=== PATIENT | female | born 1985 | race Caucasian/White ===

== ENCOUNTER 2022-01-22 19:55 | Emergency (ER) | payer MEDICAID, SELFPAY ==
--- NOTE | ~2022-01-22 | XR_ITS ---
EXAMINATION: XR CHEST CLINICAL INFORMATION: Cough. COMPARISON: 11/03/2017 chest radiographs. TECHNIQUE: 2 views of the chest were obtained. FINDINGS: No significant abnormality is noted involving the heart, lungs, mediastinum, bony thorax or soft tissues. XR/XR chest 2V IMPRESSION: No acute cardiopulmonary process.
[2022-01-22 22:04] VITALS: BP 153/90; PULSE 88; RESP 18; TEMP 36.8; O2SAT 99; BMI 29.5
[2022-01-22 22:28] LABS: MANUAL DIFF FLAG NO
[2022-01-22 22:35] LABS: Basophils Percent Auto 0.2 % (0-2); Eosinophils Percent Auto 0.2 % (0-4); Hematocrit 40.6 % (37.0-47.0); Imm Gran Abs Auto 0.01 X10*3/uL (0.00-0.03); Imm Gran Pct Auto 0.2 % (0.0-0.4); Lymphocytes Absolute Auto 1.4 X10*3/uL (1.2-4.9); Lymphocytes Percent Auto 25.9 % (20-40); Mean Corpuscular HGB Conc 34.5 g/dl (31.0-35.0); Mean Corpuscular Hemoglobin 30.7 pg (27.0-33.0); Mean Platelet Volume 10.5 fL (9.4-12.3); Monocytes Absolute Auto 0.3 X10*3/uL (0.1-1.2); Monocytes Percent Auto 6.1 % (2-11); Neutrophils Absolute Auto 3.6 x10*3/uL (2.0-8.3); Neutrophils Percent Auto 67.4 % (45-73); Platelet Count 205 X10*3/uL (160-400); Red Blood Count 4.56 X10*6/uL (4.20-5.50); Red Cell Distribution Width 12.1 % (11.0-16.0); White Blood Count 5.3 X10*3/uL (4.8-10.8)
[2022-01-22 22:44] LABS: COVID-19 Test Positive (Negative)
[2022-01-23 00:06] LABS: Alanine Aminotransferase 24 U/L (0-31); Albumin Level 4.5 g/dL (3.5-5.0); Alkaline Phosphatase 35 U/L (39-117); Anion Gap 16 (12-20); Aspartate Amino Transferase 19 U/L (5-31); Bilirubin Total 1.1 mg/dL (0.0-1.0); Blood Urea Nitrogen 13 mg/dL (9-16); Calcium 9.4 mg/dL (8.4-10.2); Carbon Dioxide 23 mmol/L (22-29); Chloride 102 mmol/L (96-108); Creatinine Clr Calc Pharmacy 101.3; Estimated Glomerular Filt Rate > 60; Glucose Random 80 mg/dL (60-115); Potassium 3.8 mmol/L (3.3-5.1); Sodium 137 mmol/L (135-145)
[2022-01-23] MEDS: 0.9 % Sodium Chloride 1,000 ML 999 ML IV ×3 (08:44→11:22)
[2022-01-23] MEDS: ondansetron HCL 4 MG/2 ML VIAL IVPUSH (08:46)
[2022-01-23 08:49] VITALS: BP 97/66; PULSE 140; RESP 16; TEMP 36.9; O2SAT 98
--- NOTE | 2022-01-23 08:53 | ECG_ITS ---
Test Reason : TACHYCARDIA Blood Pressure : / mmHG Vent. Rate : 073 BPM Atrial Rate : 073 BPM P-R Int : 138 ms QRS Dur : 074 ms QT Int : 430 ms P-R-T Axes : 070 053 017 degrees QTc Int : 473 ms Normal sinus rhythm Normal ECG No previous ECGs available Referred By: Ellen Lau Electronically Signed By:YAZMIN MARQUEZ
[2022-01-23] MEDS: Acetaminophen 325 MG TABLET 650 MG PO (09:50)
--- NOTE | 2022-01-23 11:29 | ED_ITS ---
HPI - General Adult General Chief complaint: General Medical Stated complaint: COVID + 10 days ago, can't eat for about 1 week Time Seen by Provider: 01/23/22 03:14 Source: patient Mode of arrival: ambulatory History of Present Illness HPI narrative: 36-year-old female COVID-19 positive on 01/15/22 presenting to the ED complaining of anorexia, nausea, vomiting, inability to tolerate p.o., dry cough, and exertional dyspnea. Reports generalized fatigue/weakness. Denies fever, chills, chest pain, abdominal pain, dysuria/hematuria Onset (ago): day(s) Related Data Previous Rx's Medication Instructions Recorded ondansetron 4 mg disintegrating 4 mg PO Q8H PRN #10 tab 01/23/22 tablet Allergies Allergy/AdvReac Type Severity Reaction Status Date / Time No Known Allergies Allergy Verified 01/22/22 22:02 [No Known Allergies*] Review of Systems Review of Systems: Constitutional: No Fever, No Chills, + Fatigue, + Malaise ENT/Mouth: No Ear Pain, No Nasal Congestion, No Sinus Pain, No Hoarseness, No sore throat, No Rhinorrhea, No Swallowing Difficulty Eyes: No Eye Pain, No Swelling, No Redness Cardiovascular: No Chest Pain, No SOB, + Dyspnea on Exertion, No Orthopnea, No Edema, No Palpitations Respiratory: + Cough, No Sputum, No Wheezing, No Smoke Exposure, No Dyspnea Gastrointestinal: + Nausea, + Vomiting, No Diarrhea, No Constipation, No Abdominal pain Genitourinary: No Dysuria, No Urinary Frequency, No Hematuria, No Flank Pain, No Hesitancy Musculoskeletal: No joint pain, No Myalgias, No Joint Swelling Skin: No Skin Lesions, No rash Neuro: + Weakness, + lightheadedness, No Headache Yes all other systems are reviewed and are negative [facility] Past Medical History Attestation statement: The following information was validated with the patient. Social History Social History Advance Directives: No Advance Directives Information Provided: No Physical Exam ED Vital Signs: Vital Signs - 24 hr 01/22/22 22:04 01/23/22 08:49 01/23/22 11:36 Temperature 98.2 F 98.4 F 98.3 F Pulse Rate 88 140 H 74 Respiratory Rate 18 16 16 Blood Pressure 153/90 H 97/66 91/60 Pulse Oximetry 99 98 100 01/23/22 13:34 Temperature 97.6 F Pulse Rate 74 Respiratory Rate 16 Blood Pressure 101/70 Pulse Oximetry 99 BMI result Body Mass Index 29.5 Const General: cooperative, healthy appearing, no acute distress and alert Orientation/consciousness: patient oriented x3 Limitations: no limitations HENMT Head: Yes normal to inspection and Yes atraumatic Ears: hearing grossly normal bilaterally General nose exam: Normal external nose present Face and sinus: Yes normal facial exam Mouth: mucous membranes dry Throat: Yes posterior oropharynx normal, Yes tonsils normal, Yes uvula midline and No peritonsillar mass Eyes General: appearance normal, both eyes and all related structures EOM: EOMs intact bilaterally Neck Neck: Yes normal visual inspection and Yes no meningeal signs Resp Effort & Inspection: normal respiratory effort and no respiratory distress Auscultation: clear to auscultation bilaterally, no rales, no rhonchi and no wheezes Cardio Rate: regular rate and tachycardic Heart sounds: S1 normal heart sound present and S2 normal heart sound present GI Inspection: Yes normal to inspection Palpation (GI): Soft to palpation, nontender, no guarding and not rigid Skin Rashes: no rashes Wounds: no wounds Neuro General: patient oriented x3, tone normal and no meningeal signs Gait exam (Neuro): Normal gait present Extrem General: Yes normal to inspection, Yes no pedal edema and Yes no calf tenderness Course Course Course Narrative: -1134-- no leukocytosis. Labs otherwise unremarkable. -COVID-19 positive XR chest 2V IMPRESSION: No acute cardiopulmonary process. -UA not infected, >=80 ketones >> vital signs improved after IVF/tachycardia resolved. BP soft suspected from dehydration. -1315--on re-evaluation patient tolerating p.o., results discussed a survey project manager including worrisome signs and symptoms and strict return precautions and need close follow-up with PCP. She verbalized understanding and feel safe for discharge home at this time Medical Decision Making MDM Narrative Medical decision making narrative: 36-year-old female COVID-19 positive on 01/15/22 presenting to the ED complaining of anorexia, nausea, vomiting, inability to tolerate p.o., dry cough, and exertional dyspnea. On exam tachycardic likely from dehydration, NAD/nontoxic appearing, abdomen soft nontender, lungs CTA, no pedal edema/calf tenderness. Concern for viral illness. Lower concern for ACS/PE. Rule out pne umonia and metabolic abnormalities Plan: EKG, labs, UA, IVF, symptomatic treatment, p.o. challenge, CXR, re- evaluate Medical Records Medical records reviewed: Yes I reviewed the patient's medical records. Lab Data Lab results reviewed: Yes I reviewed the patient's lab results. Result diagrams: 01/22/22 22:16 01/22/22 22:16 Labs: Lab Results 01/22/22 01/22/22 01/22/22 Range/Units 22:16 22:16 22:16 WBC 5.3 (4.8-10.8) X10*3/uL RBC 4.56 (4.20-5.50) X10*6/uL Hgb 14.0 (12.0-16.0) g/dl Hct 40.6 (37.0-47.0) % MCV 89.0 (80.0-98.0) fL MCH 30.7 (27.0-33.0) pg MCHC 34.5 (31.0-35.0) g/dl RDW 12.1 (11.0-16.0) % Plt Count 205 (160-400) X10*3/uL MPV 10.5 (9.4-12.3) fL Immature Gran % (Auto) 0.2 (0.0-0.4) % Neut % (Auto) 67.4 (45-73) % Lymph % (Auto) 25.9 (20-40) % [place] % (Auto) 6.1 (2-11) % Eos % (Auto) 0.2 (0-4) % Baso % (Auto) 0.2 (0-2) % Lymph # (Auto) 1.4 (1.2-4.9) X10*3/uL [place] # (Auto) 0.3 (0.1-1.2) X10*3/uL Eos # (Auto) 0.0 (0.0-0.4) X10*3/uL Baso # (Auto) 0.0 (0.0-0.2) X10*3/uL Abs Immat Gran (auto) 0.01 (0.00-0.03) X10*3/uL Absolute Neuts (auto) 3.6 (2.0-8.3) x10*3/uL Absolute Nucleated RBC 0.000 (0.0-0.012) X10*3/uL Nucleated RBC % (auto) 0.0 (0.0-0.2) /100WBC Sodium 137 (135-145) mmol/L Potassium 3.8 (3.3-5.1) mmol/L Chloride 102 (96-108) mmol/L Carbon Dioxide 23 (22-29) mmol/L Anion Gap 16 (12-20) BUN 13 (9-16) mg/dL Creatinine 0.69 (0.5-1.4) mg/dL Estim Creat Clear Calc 101.3 Estimated GFR > 60 Random Glucose 80 (60-115) mg/dL Calcium 9.4 (8.4-10.2) mg/dL Magnesium (1.6-2.6) mg/dL Total Bilirubin 1.1 H (0.0-1.0) mg/dL Direct Bilirubin (0.0-0.5) mg/dL AST 19 (5-31) U/L ALT 24 (0-31) U/L Alkaline Phosphatase 35 L (39-117) U/L Total Protein 9.0 H (6.5-8.0) g/dL Albumin 4.5 (3.5-5.0) g/dL Lipase (8-78) U/L Urine Color Urine Appearance Urine pH (5.0-8.0) Ur Specific [place] (1.005-1.025) Urine Protein (NEG-TRACE) MG/DL Urine Glucose (UA) (NEG) MG/DL Urine Ketones (NEG) MG/DL Urine Blood (NEG) Urine Nitrite (NEG) Ur Leukocyte Esterase (NEG) Urine RBC (0) /HPF Urine WBC (0-4) /HPF Ur Squamous Epith Cells /LPF Urine Bacteria /LPF Urine Mucus /LPF Urine Test (NEGATIVE) COVID-19 (MARIO) Positive A (Negative) COVID-19 Clin Com See Note 01/23/22 01/23/22 01/23/22 Range/Units 11:26 11:26 11:42 WBC (4.8-10.8) X10*3/uL RBC (4.20-5.50) X10*6/uL Hgb (12.0-16.0) g/dl Hct (37.0-47.0) % MCV (80.0-98.0) fL MCH (27.0-33.0) pg MCHC (31.0-35.0) g/dl RDW (11.0-16.0) % Plt Count (160-400) X10*3/uL MPV (9.4-12.3) fL Immature Gran % (Auto) (0.0-0.4) % Neut % (Auto) (45-73) % Lymph % (Auto) (20-40) % [place] % (Auto) (2-11) % Eos % (Auto) (0-4) % Baso % (Auto) (0-2) % Lymph # (Auto) (1.2-4.9) X10*3/uL [place] # (Auto) (0.1-1.2) X10*3/uL Eos # (Auto) (0.0-0.4) X10*3/uL Baso # (Auto) (0.0-0.2) X10*3/uL Abs Immat Gran (auto) (0.00-0.03) X10*3/uL Absolute Neuts (auto) (2.0-8.3) x10*3/uL Absolute Nucleated RBC (0.0-0.012) X10*3/uL Nucleated RBC % (auto) (0.0-0.2) /100WBC Sodium (135-145) mmol/L Potassium (3.3-5.1) mmol/L Chloride (96-108) mmol/L Carbon Dioxide (22-29) mmol/L Anion Gap (12-20) BUN (9-16) mg/dL Creatinine (0.5-1.4) mg/dL Estim Creat Clear Calc Estimated GFR Random Glucose (60-115) mg/dL Calcium (8.4-10.2) mg/dL Magnesium 1.8 (1.6-2.6) mg/dL Total Bilirubin 1.1 H (0.0-1.0) mg/dL Direct Bilirubin 0.6 H (0.0-0.5) mg/dL AST 12 (5-31) U/L ALT 17 (0-31) U/L Alkaline Phosphatase 25 L D (39-117) U/L Total Protein 6.4 L D (6.5-8.0) g/dL Albumin 3.3 L D (3.5-5.0) g/dL Lipase 26 (8-78) U/L Urine Color YELLOW Urine Appearance CLOUDY Urine pH 6.0 (5.0-8.0) Ur Specific [place] >= 1.030 H (1.005-1.025) Urine Protein 1+ H (NEG-TRACE) MG/DL Urine Glucose (UA) NEG (NEG) MG/DL Urine Ketones >=80 (NEG) MG/DL Urine Blood 2+ H (NEG) Urine Nitrite NEG (NEG) Ur Leukocyte Esterase NEG (NEG) Urine RBC 1-4 (0) /HPF Urine WBC 1-4 (0-4) /HPF Ur Squamous Epith Cells 1+ /LPF Urine Bacteria 1+ /LPF Urine Mucus 3+ /LPF Urine Test NEGATIVE (NEGATIVE) COVID-19 (MARIO) (Negative) COVID-19 Clin Com Discharge Plan Discharge Clinical Impression: COVID-19, Acute dehydration Patient Disposition: Home, Self-Care Instructions: Dehydration (ED), COVID-19 (Coronavirus Disease 2019) (ED) Additional Instructions: You are dehydrated. Chest x-rays reassuring. It is very important that you push fluids at home. Rest. If symptoms persist or worsen, your unable to eat or drink read about fever unresolved medications please return to the emergency department Zofran is an antinausea medication, take as needed At this time you will be okay for discharge. Please self isolate for 10-14 days from date of positive COVID test. Do not expose yourself to others. You may not go to work or school. Please continue to follow cold instructions and wash your hands frequently. You may take Tylenol / Motrin as directed on the bottle for pain or fever. If you have constant or persistent shortness of breath, fever unresolved with medications, chest pain, or your unable to eat or drink please return to the ED CDC Guidelines for home isolation: - Stay away from others - WEAR A MASK if you are sick AND STAY HOME - Cover your mouth and nose with a tissue when you cough or sneeze. Dispose of tissues in a lined trash can and wash your hands immediately with soap and water for at least 20 seconds. If soap and water are not available, clean hands with alcohol-based hand apparel patternmaker that contains at least 60% alcohol. - Clean your hands often with soap and water for at least 20 seconds - Avoid touching your eyes, nose and mouth with unwashed hands - Do not share dishes, drinking glasses, cups, eating utensils, towels, or bedding with other people in your home. After using these items, wash them thoroughly with soap and water or put in the millwright instructor. - Clean high-touch surfaces in your isolation area ( sick room and bathroom) every day; let a caregiver clean and disinfect high-touch surfaces in other areas of the home. Clean the area or item with soap and water or another detergent if it is dirty. Then, use a household disinfectant. - Limit contact with pets and animals: If you must care for a pet, wash your hands before and after interacting with them) Est?s deshidratado. Las radiograf?as de t?rax son tranquilizadoras. Es muy importante que empujes l?quidos en casa. [place]. Si los s?ntomas persisten o empeoran, no puede comer ni beber, yesi sobre medic amentos sin resolver para la fiebre, regrese al departamento de emergencias. Zofran es un medicamento contra las n?useas, t?fermin seg?n sea necesario. En reymundo momento estar? maryse para el alexei. A?slese bryanna 10 a 14 d?as a partir de la fecha de la prueba COVID positiva. No te expongas a los dem?s. Es posible que no vaya al trabajo ni a la escuela. Contin?e siguiendo las instrucciones en fr?o y l?vese las jessica con frecuencia. Puede denise Tylenol/Motrin carlos manuel se indica en el frasco para el dolor o la fiebre. Si tiene dificultad para respirar bruce o persistente, fiebre que no se resuelve con medicamentos, dolor en el pecho o no puede comer o beber, regrese al servicio de urgencias. [place] de los CDC para el aislamiento en el hogar: - Mant?ngase alejado de los dem?s. - USE KARLEE MASCARILLA si est? enfermo Y QU?DESE EN CASA - C?brase la boca y la nariz con un pa?uelo desechable al toser o estornudar. Deseche los pa?uelos en un bote de basura forrado y l?vese las jessica inmediatamente con agua y jab?n bryanna al menos 20 segundos. Si no hay agua y jab?n disponibles, l?vese las jessica con un desinfectante para jessica a base de alcohol que contenga al menos un 60 % de alcohol. - L?vese las jessica con frecuencia con agua y jab?n bryanna al menos 20 segundos. - Evite tocarse los ojos, la nariz y la boca con las jessica sin gal - No comparta platos, vasos, tazas, utensilios para comer, toallas o ropa de cama con otras personas en arora hogar. Despu?s de usar estos art?culos, l?velos maryse con agua y jab?n o col?quelos en el [place]. - Limpie las superficies de alto contacto en arora ?radha de aislamiento ( cuarto de enfermos y ba?o) todos los d?as; permita que un cuidador limpie y desinfecte las superficies de alto contacto en otras ?reas del hogar. Limpie el ?radha o art?culo con agua y jab?n u otro detergente si est? sucio. Luego, use un desinfectante dom?stico. - Limite el contacto con mascotas y animales: si debe cuidar karlee mascota, l?vese las jessica antes y despu?s de interactuar con ellos) Prescriptions: New ondansetron 4 mg tablet,disintegrating 4 mg PO Q8H PRN (Reason: nausea and vomiting) Qty: 10 0RF Referrals: Physician,Unknown J [Primary Care Provider] - Print Language: Estonian
[2022-01-23 11:36] VITALS: BP 91/60; PULSE 74; RESP 16; TEMP 36.8; O2SAT 100
[2022-01-23 11:42] LABS: Appearance Urine CLOUDY; Color Urine YELLOW; Glucose Urine UA NEG (NEG); Leukocyte Esterase Urine NEG (NEG); Nitrite Urine NEG (NEG); Specific Gravity - Urine >= 1.030 (1.005-1.025); UACC Culture Trigger NO; Urine Blood 2+ (NEG); Urine Ketones >=80 MG/DL (NEG); Urine Protein 1+ MG/DL (NEG-TRACE)
[2022-01-23 11:44] LABS: UPreg QC Valid YES; Urine Pregnancy NEGATIVE (NEGATIVE)
[2022-01-23 11:52] LABS: Mucus Urine 3+ /LPF; Squamous Epithelial Cell Urine 1+ /LPF
[2022-01-23 11:53] LABS: Bacteria Urine 1+ /LPF
[2022-01-23 12:22] LABS: Alanine Aminotransferase 17 U/L (0-31); Albumin Level 3.3 g/dL (3.5-5.0); Alkaline Phosphatase 25 U/L (39-117); Aspartate Amino Transferase 12 U/L (5-31); Bilirubin Direct 0.6 mg/dL (0.0-0.5); Bilirubin Total 1.1 mg/dL (0.0-1.0); Lipase 26 U/L (8-78); Magnesium 1.8 mg/dL (1.6-2.6); Total Protein 6.4 g/dL (6.5-8.0)
[2022-01-23 13:34] VITALS: BP 101/70; PULSE 74; RESP 16; TEMP 36.4; O2SAT 99
[2022-01-23] MEDS: Metoclopramide HCl 10 MG/2 ML VIAL IVPUSH (14:25)
== END 2022-01-23 14:56 | disposition home or self-care (01) ==
PROVIDERS: Physician Assistant; Emergency Provider Student in an Organized Health Care Education/Training Program
DX: U07.1 COVID-19 (principal); E86.0 Dehydration
CPT/HCPCS: 36415; 71046; 80053; 80076; 81001; 81025; 83690; 83735; 85025; 87635; 93005; 96361; 96374; 96375; 99284; J2405; J2765

== ENCOUNTER 2023-07-23 14:38 | Outpatient (AMB) | payer MEDICAID, SELFPAY ==
[2023-07-23 14:46] VITALS: BP 110/60; PULSE 104; TEMP 36.5; O2SAT 98; BMI 26.2
--- NOTE | 2023-07-23 14:46 | A.OFFVIS_ITS ---
Intake Vital Signs 07/23/23 14:46 Height 5 ft 2.72 in Weight 146 lb 9.718 oz BMI 26.2 BP 110/60 Blood Pressure Location Rt brachial Position Sitting Pulse 104 H Pulse Source Pulse Oximeter Temp 97.7 F Pulse Oximetry (%) 98 Oxygen Delivery Method Room Air Intake Visit Reasons: joint pain Intake Note: New pt presents today for joint pain consult. 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 Name: Rony Hutchins [id number] Information Interpreted: clinical only Accompanied by: Self / Same As Patient Allergies No Known Allergies [No Known Allergies*] Allergy (Verified 07/23/23 14:48) Medication List - Last Reconciled 07/23/23 by Best Shipley MD aripiprazole 2 mg PO DAILY clobetasol 0.05% grams topical diclofenac potassium 50 mg PO TID PRN escitalopram oxalate 20 mg PO DAILY melatonin 3 - 6 mg PO BEDTIME PRN ondansetron 4 mg PO Q8H PRN propranolol 10 mg PO TID PRN HPI HPI Comments History of Present Illness Details This is a 38-year-old female who presents for evaluation of diffuse pain. Patient stated that she has had diffuse pain for years but it has become worse recently. She states that she has pain from head to toe. States that she feels like her skin and muscles are bruise. She states that she gets intermittent tingling and numbness of her hands when doing housework. She states that she has had tendinitis of her shoulder at some point. She is unaware of any family history of an autoimmune rheumatic disease. States that for many years her fingers and toes change color to white and sometimes to blue in the cold. States that this happens every few months. She denies any prolonged symptoms or any history of digital tip ulcers. She is unaware of any history of DVT/PE. Patient has 3 pregnancies and 3 live children. [facility] Medical History (Updated 07/23/23 @ 16:02 by Best Shipley MD) Elevated sed rate Pain in joint, multiple sites Surgical History No history of previous surgery Family History Mother Cancer Father Hypertension Social History Household Members: Children Alcohol intake: current Alcohol intake frequency: does not drink Patient Tobacco Use Status: Never used Tobacco Current occupational status: unemployed Female Reproductive History Menstrual Total pregnancies: 3 Number of Living Children: 3 Review of Systems Const Reports fatigue, Reports headache(s) and Reports weakness Eyes Reports blurry vision ENT Reports dizziness, Reports headache(s) and Reports tinnitus Card Reports irregular heart rhythm and Reports dyspnea Resp Reports cough and Reports dyspnea GI Reports constipation, Reports diarrhea and Reports nausea Reports difficulty voiding Musc Reports arthralgias, Reports numbness and Reports stiffness Skin/Breast Reports rash Neuro Reports dizziness, Reports headache(s), Reports numbness and Reports weakness Psych Reports abnormal sleep pattern, Reports anxiety and Reports depression Endo Reports fatigue Physical Exam Vital Signs: Last Vital Signs Temp 97.7 F 07/23/23 14:46 Pulse 104 H 07/23/23 14:46 BP 110/60 07/23/23 14:46 Pulse Ox 98 07/23/23 14:46 Oxygen Delivery Method Room Air 07/23/23 14:46 BMI result Body Mass Index 26.2 Const General: cooperative, healthy appearing and comfortable Nutritional Appearance: overweight Orientation/consciousness: patient oriented x3 Limitations: no limitations HEENT Head: Yes normocephalic and Yes atraumatic Mouth: moist mucous membranes Resp Effort & Inspection: normal respiratory effort and able to speak in complete sentences Auscultation: clear to auscultation bilaterally Cardio Rate: regular rate Rhythm: regular rhythm GI Inspection: No distended Palpation (GI): Soft to palpation Neuro General: patient oriented x3 Extrem Other: No active synovitis Diffuse myofascial tender points Nailfold capillaroscopy with no dilated loops Assessment & Plan Assessment & Plan (1) Pain in joint, multiple sites: Code(s): M25.50 - Pain in unspecified joint Plan: This is a 38-year-old female who presents for evaluation of diffuse pain. I do not see any signs of an autoimmune rheumatic disease upon my evaluation. Follow-up with PCP (2) Raynauds phenomenon: Code(s): I73.00 - Raynaud's syndrome without gangrene Qualifiers: Raynaud?s-associated gangrene presence: without gangrene Qualified Code(s): I73.00 - Raynaud's syndrome without gangrene Plan: Patient has symptoms suggestive of Raynaud's. States that she gets Raynaud's episodes once every few months. I advised patient on the importance of conservative management for Raynaud's. Advised patient to come back to rheumatology clinic if she starts to have more frequent, persistent Raynaud's episodes and if she has any digital tip ulcers Plan I spent 30 minutes reviewing patient's chart, evaluating patient, counseling patient and documenting in the chart Coding Level of Care Code New Pt Level 3 (46030) Diagnoses Pain in joint, multiple sites M25.50 Raynaud's phenomenon without gangrene I73.00 Raynaud?s-associated gangrene presence: without gangrene
== END 2023-07-23 16:00 | disposition home or self-care (01) ==
PROVIDERS: Visit Provider Student in an Organized Health Care Education/Training Program
DX: M25.50 Pain in unspecified joint (principal); I73.00 Raynaud's syndrome without gangrene
CPT/HCPCS: 99203

== ENCOUNTER → 2023-07-23 14:38 | Outpatient (BNVA) | payer MEDICAID, SELFPAY | PROVIDERS: Visit Provider Student in an Organized Health Care Education/Training Program | DX: M25.50 Pain in unspecified joint (principal); I73.00 Raynaud's syndrome without gangrene | CPT/HCPCS: 99202 ==

== ENCOUNTER 2023-12-16 09:30 | Outpatient (REF) | payer MEDICAID, SELFPAY ==
[2023-12-16 14:48] LABS: C Reactive Protein < 0.10 mg/dL (< or = 0.50)
[2023-12-16 15:07] LABS: TSH reflex Free T4 1.46 uIU/mL (0.32-4.0); Vitamin D 25-OH Total 4.4 ng/mL (>30)
== END 2023-12-16 09:31 | disposition home or self-care (01) ==
LOC: HO.CHCLDS 09:30
PROVIDERS: Visit Provider Pediatrics
DX: M25.50 Pain in unspecified joint (principal)
CPT/HCPCS: 36415; 82306; 82550; 84443; 86140

== ENCOUNTER 2024-06-07 17:18 | Outpatient (REF) | payer MEDICAID, SELFPAY ==
[2024-06-09 10:44] LABS: HPV mRNA E6/E7 Not Detected (Not Detected)
== END 2024-06-07 17:19 | disposition home or self-care (01) ==
LOC: HO.LNP 17:18
PROVIDERS: Visit Provider Advanced Practice Midwife
DX: Z12.4 Encounter for screening for malignant neoplasm of cervix (principal)
CPT/HCPCS: 87624; 88175

== ENCOUNTER → 2024-10-11 14:43 | Outpatient (BNV) | payer MEDICAID, SELFPAY | PROVIDERS: Visit Provider Radiology Diagnostic Radiology | DX: D25.9 Leiomyoma of uterus, unspecified (principal) | CPT/HCPCS: 76830; 76856 ==

== ENCOUNTER 2025-03-03 16:33 | Outpatient (REF) | payer MEDICAID, SELFPAY ==
--- OUTSIDE RECORDS SUMMARY | 2025-03-03 10:15 | XMS_ITS | Encounter Summary ---
Author Organization [employer] [facility] Address [address] [place] [address] [address] [address] Care Team Providers Care Otr Driver Name Role Phone Minna Whipple MD Primary Care Provider [phone] Reason for Referral * Consultation (Urgent) - Pending Review Specialty Diagnoses / Procedures Referred By Andrew charles Referred To Contact Obstetrics and Gynecology Diagnoses Intermenstrual bleeding Fibroids Cyst of left Bartholin gland Joyce Rodrigues CNM [address] [place] [address] Phone: tel: fax: Referral ID Status Reason Start Date Expiration Date Visits Requested Visits Authorized [id number] Pending Review Specialty Services Required 03/03/2025 03/03/2026 1 1 Reason for Visit * Reason Comments care management associate Encounter Details Date Type Department Care Team ([facility] st Contact Info) Description 03/03/2025 10:15 AM EDT Office Visit [facility] [address] [place], [place] [phone] Joyce Rodrigues CNM [address] [place] [address] Urinary urgency (Primary Dx); Vaginal odor; Intermenstrual bleeding; Fibroids; Cyst of left Bartholin gland Social History Tobacco Use Types Packs/Day Years Used Date Smoking Tobacco: Never Smokeless Tobacco: Never Tobacco Cessation:Counseling Given: Not Answered Alcohol Use Standard Drinks/Week Comments Never 0 (1 standard drink = 0.6 oz pur e alcohol) Depression Answer Date Recorded Patient Health Questionnaire-9 Score 18 12/16/2023 Patient Health Questionnaire-9 Score 18 12/16/2023 Last PHQ-9: Questionnaire Data Not on file 0 12/16/2023 Housing Stability Answer Date Recorded What is your housing situation today? I have cheng wen 12/16/[address] you li ve. Do you have problems with any of the following? None of the above 12/16/2023 Food Insecurity Answer Date Recorded Within the past 12 months, y ou worried that your food would run out before you got money to buy more: Often true 12/16/2023 Within the past 12 months,th e food you bought just didn't last and you didn't have enough money to get more: Often true 05/2024 Transportation Answer Date Recorded In the past 12 months, has l ack of transportation kept you from medical appts, meetings, work or from getting things needed for daily living? Yes, it has kept me from medical appointments or getting medications. 12/16/2023 Utilities Answer Date Recorded In the past 12 months, has t he electric, gas, oil or water company threatened to shut off services in your home? Yes 12/16/2023 Depression Answer Date Recorded Patient Health Questionnaire-2 Score 6 12/16/2023 Comments No Intention Date Recorded No desire to become (finding) 0 03/03/2025 Sex and Gender Information Value Date Recorded Sex Assigned at Female 07/08/2022 10:34 AM EDT Legal Sex Female 10:34 AM EDT Gender Identity Female 07/08/2022 10:34 AM EDT Sexual Orientation Straight 07/08/2022 10 :34 AM EDT documented as of this encounter Last Filed Vital Signs Vital Sign Reading Time Taken Comments Blood Pressure 110/80 03/03/2025 10:13 AM EDT Pulse 76 03/03/2025 10:13 AM EDT Temperature 36.8 C (98.2 F) 03/03/2025 10:13 AM EDT Respiratory Rate 16 03/03/2025 10:13 AM EDT Oxygen Saturation - - Inhaled Oxygen Concentration - - Weight 67.3 kg (148 lb 6.4 oz) 03/03/2025 10:13 AM EDT Height 154.9 cm (5' 1 ) 03/03/2025 10:13 AM EDT Body Mass Index 28.04 03/03/2025 10:13 AM EDT documented in this encounter Progress Notes * Joyce Olguinni, SIDNEY - 03/03/2025 10:15 AM EDT poSubjective Patient ID: Lidia Dey is a 40 y.o. female who presents for [facility] visit Notes urinary urgency and suprapubic discomfort for past month. Also notes intermenstrual bleeding for the past 3 months as well as some vaginal odor. Pap NIL/HPV neg 05/2024. Referred to [facility] for Bartholin's gland abscess previously. It sounds like she had appointment, but was nervous to have treatment for it. Would like to be referred back to [facility] for this. Pelvic ultrasound ordered to followup on bilateral ovarian cysts noted 10/2024. Two fibroids also noted on 10/2024 ultrasound. Still needs to get ultrasound scheduled. Has tubal ligation. Not sexually active, no new partners since last visit with me. LMP 01/28 x 5d. Spotting occurs well outside menses. Review of Systems Constitutional: Negative for chills and fever. Gastrointestinal: Negative for nausea and vomiting. Genitourinary: Positive for frequency, menstrual problem, pelvic pain and vaginal bleeding. Negative for dysuria, hematuria, vaginal discharge and vaginal pain. Musculoskeletal: Positive for back pain. Objective BP 110/80 (BP Location: Left arm, Patient Position: Sitting, BP Cuff Size: Adult) Pulse 76 Temp98.2 ??F (36.8 ??C) (Oral) Resp 16 Ht 5' 1 (1.549 m) Wt 148 lb 6.4 oz (67.3 kg) LMP 01/28/2025 (Approximate) BMI 28.04 kg/m?? Physical Exam Constitutional: Appearance: Normal appearance. Abdominal: Tenderness: There is no right CVA tenderness or left CVA tenderness. Genitourinary: General: Normal vulva. Labia: Right: No rash, tenderness, lesion or injury. Left: No rash, tenderness, lesion or injury. Vagina: No signs of injury and foreign body. No vaginal discharge, erythema, tenderness, bleeding, lesions or prolapsed vaginal holloway. Cervix: Normal. No cervical motion tenderness, discharge, friability, lesion, erythema, cervical bleeding or eversion. Uterus: Normal. Not enlarged and not tender. Adnexa: Left adnexa normal. Right: No mass, tenderness or fullness. Left: No mass, tenderness or fullness. Comments: Scant blood in vagina Left sided 3cm swelling consistent with Bartholin's gland cyst (vs abscess), no tenderness/erythemaor exudate. Neurological: Mental Status: She is alert. Psychiatric: Mood and Affect: Mood normal. Behavior: Behavior normal. Assessment/Plan Diagnoses and all orders for this visit: Urinary urgency - POCT urinalysis dipstick manually resulted - Culture, Urine, Routine Blood on UA may be due to vaginal bleeding. Will send culture and treat positive results. Stay hydrated. Avoid bladder irritants. Report worsening symptoms. Vaginal odor - Bacterial Vaginosis Panel - POCT fern test, vaginal fluid manually resulted Negative wet mount. Will send bacterial vaginosis swab and treat positive results. Intermenstrual bleeding - Referral to Obstetrics / Gynecology; Future Repeat ultrasound ordered, not done. Will have [place] fax order. Referred to [facility] for further evaluationdue to new onset intermenstrual bleeding. Fibroids - Referral to Obstetrics / Gynecology; Future Repeat ultrasound ordered, not done. Will have [place] fax order. Referred to [facility] for further evaluationdue to new onset intermenstrual bleeding. Cyst of left Bartholin gland - Referral to Obstetrics / Gynecology; Future Referred to [facility]. Seems more like cyst than abscess today. documented in this encounter Plan of Treatment Scheduled Orders Name Type Priority Associated Diagnoses Orde r Schedule Culture, Urine, Routine Microbiology Routine Urinary urgency Ordered: 03/03/2025 Scheduled Referrals Name Type Priority Associated Diagnoses Order Schedule Referral to Obstetrics / Gynecology Outpatient Referral Urgent Intermenstrual bleeding Fibroids Cyst of left Bartholin gland Expected: 03/03/2025 (Approximate), Expires: 03/03/2026 documented as of this encounter Procedures Procedure Name Priority Date/Time Associated Diagnosis Comments POCT WET MOUNT/NASREEN Routine 03/03/2025 11 :01 AM EDT Vaginal odor POCT URINALYSIS DIPSTICK Routine 03/03/2025 10:40 AM EDT Urinary urgency BACTERIAL VAGINOSIS PANEL Routine 03/03/2025 10:39 AM EDT Vaginal odor documented in this encounter Results * POCT fern test, vaginal fluid manually resulted (03/03/2025 11:01 AM EDT) NASREEN Prep Negative Comment:pH 4.5, neg whiff, n eg clue, neg trich, neg yeast, neg wbc Vaginal Fluid Vaginal structure / Unknown 03/03/2025 11:01 AM EDT [facility] POINT OF CARE TEST ENTER/ EDIT ORDERABLES Final Result * (ABNORMAL) POCT urinalysis dipstick manually resulted (03/03/2025 10:40 AM EDT) Pathologist [facility] Color, UA Dark Ruthann Clarity, UA Cloudy Glucose, UA Negative Bilirubin, UA Moderate Ketones, UA Positive Spec Grav, UA 1.030 Blood, UA Positive(A) Negative, None Detected pH, UA 6.0 Protein, UA Trace Urobilinogen, UA 2.0 Leukocytes, UA Negative Negative, Rare, Trace Nitrite, UA Negative Negative, None Detected Appearance, UA dark [employer] Media Lot # [id number] Lot# Expiration Date [id number] Urine 03/03/2025 10:4 0 AM EDT [facility] POINT OF CARE TEST ENTER/ EDIT ORDERABLES Final Result * (ABNORMAL) Bacterial Vaginosis Panel (03/03/2025 10:39 AM EDT) Pathologist [facility] TRICHOMONAS VAGINALIS DETECTION BY PCR NOT DETECTED Not Detect [facility] BACTERIAL VAGINOSIS DETECTION BY PCR POSITIVE(A) Negative [facility] Comment:The BV organism targ ets of the Xpert Xpress MVP test can becommensal in women; Xpert Xpress MVP positive results forbacterial vaginosis should be considered in conjunction withother clinical and patient information to determine thedisease status. Organisms that are not detected by the XpertXpress MVP test have also been reported to be associatedwith BV and aerobic vaginitis.The Xpert Xpress MVP test performance has not been evaluatedin patients under the age of 14. ADRIANA GROUP DETECTION BY PCR NOT DETECTED Not Detect [facility] Adriana glab krusei PCR NOT DETECTED Not Detect [facility] Swab Vaginal structure / Unknown 03/03/2025 10:39 AM EDT 03/03/2025 4:34 PM EDT us Joyce Rodrigues CNM LAB MICROBIOLOGY - GENERA L ORDERABLES Final Result [facility] [address] [place] [address] [phone] documented in this encounter Visit Diagnoses Diagnosis Urinary urgency- Primary Urgency of urination Vaginal odor Unspecified symptom associated with female genital organs Intermenstrual bleeding Metrorrhagia Fibroids Leiomyoma of uterus, unspecified Cyst of left Bartholin gland documented in this encounter Additional Health Concerns Assessment Noted Time PHQ-9 Depression Total Score: 18 024 8:56 AM EDT documented as of this encounter Care Teams Otr Driver Relationship Specialty Start Date End Date Minna Whipple MD [address] [place] [id number] PCP - General Internal Medicine 06/09/18 documented as of this encounter
[2025-03-03 18:24] LABS: Bacterial Vaginosis PCR POSITIVE (Negative); Candida Group PCR NOT DETECTED (Not Detect); Candida glab krusei PCR NOT DETECTED (Not Detect); Trichomonas vaginalis PCR NOT DETECTED (Not Detect)
== END 2025-03-03 16:34 | disposition home or self-care (01) ==
LOC: HO.HHCLNP 16:33
PROVIDERS: Visit Provider Advanced Practice Midwife
DX: R39.15 Urgency of urination (principal); N89.8 Other specified noninflammatory disorders of vagina
CPT/HCPCS: 81515; 87086

== ENCOUNTER 2025-05-23 08:34 | Emergency (ER) | payer MEDICAID, SELFPAY ==
[2025-05-23 09:06] VITALS: BP 112/65; PULSE 86; RESP 18; TEMP 36.7; O2SAT 100; BMI 27.5
--- NOTE | 2025-05-23 09:23 | MHC.EDTECH ---
Patient brought into triage area, covid,flu,and strep swabs obtained and sent to lab.
[2025-05-23 09:38] LABS: IDNOW Serial# 58CA691E; Strep A Nucleic Acid Negative (Negative)
[2025-05-23 09:41] LABS: COVID-19 Test Negative (Negative); IDNOW Serial# 6674DD1D
[2025-05-23 09:44] LABS: IDNOW Serial# 55D5AD1C; Influenza B2 Negative (Negative)
--- NOTE | 2025-05-23 11:27 | ED.GENADULT ---
HPI - General Adult General Chief complaint: Upper Respiratory Symptoms Stated complaint: throat pain after cleaning with bleach Time Seen by Provider: 05/23/25 11:27 History of Present Illness ED Provider: Giovani FONSECA narrative: The patient is a 40-year-old woman who says that she did a lot of house cleaning today, mostly in her bathroom, washing things with the Clorox. She was not wearing a mask. She says she has spent a lot of time cleaning in started to feel a lot of irritation to her throat and her nose. Ultimately she felt bad enough that she drove herself to the emergency room. She feels somewhat better while she has been waiting to be seen. She says that she had had no sore throat or other symptoms prior to the work with the Clorox. She does not think there is any chance she could be . Related Data Home Medications ?Medication ?Instructions ?Recorded ?Confirmed clobetasol 0.05 % topical ointment g topical 03/20/23 diclofenac potassium 50 mg tablet 50 mg PO TID PRN 03/20/23 escitalopram oxalate 20 mg tablet 20 mg PO DAILY 03/20/23 melatonin 3 mg tablet 3 - 6 mg PO BEDTIME PRN 03/20/23 propranolol 10 mg tablet 10 mg PO TID PRN 03/20/23 aripiprazole 2 mg tablet 2 mg PO DAILY 07/23/23 Previous Rx's ?Medication ?Instructions ?Recorded ondansetron 4 mg disintegrating 4 mg PO Q8H PRN nausea and 01/23/22 tablet vomiting #10 tabs Allergies Allergy/AdvReac Type Severity Reaction Status Date / Time No Known Allergies (No Known Allergy Verified 05/23/25 09:13 Allergies*) Review of Systems Review of Systems: Yes all other systems are reviewed and are negative [facility] Past Medical History Medical History (Updated 05/23/25 @ 11:43 by [place] MD) Elevated sed rate Pain in joint, multiple sites Surgical History No history of previous surgery Family History Family History Mother Cancer Father Hypertension Social History Social History Household Members: Children Alcohol intake: current Alcohol intake frequency: does not drink Patient Tobacco Use Status: Never used Tobacco Advance Directives: No Advance Directives Information Provided: No Current occupational status: unemployed Physical Exam ED Vital Signs: Vital Signs - 24 hr 05/23/25 09:06 Temperature 98.0 F Pulse Rate 86 Respiratory Rate 18 Blood Pressure 112/65 Pulse Oximetry 100 Oxygen Delivery Method Room Air BMI result Body Mass Index 27.5 Const Other: The patient was awake and alert. She has been resting comfortably with a blanket pulled over her head. She awoke easily to a normal mental status and did not seem in any distress. There was no respiratory difficulty or other signs of illness. Orientation/consciousness: patient oriented x3 HENMT Other: The appearance of the face is unremarkable. She has very poor dentition that looks very chronic. She has some mild injection to the mucosa of the posterior pharynx and some evident tonsillar stones. The airway is clear. No edema. Eyes Other: Pupils are round equal, conjunctivae are clear, extraocular movements intact. No signs of conjunctival redness or irritation. Neck Other: The neck appears benign. I do not appreciate any adenopathy present. She is moving her neck easily. No stridor. Resp Other: No wheezing heard Effort & Inspection: normal respiratory effort Auscultation: clear to auscultation bilaterally Cardio Rate: regular rate Rhythm: regular rhythm Heart sounds: S1 normal heart sound present and S2 normal heart sound present Skin Other: The skin is dry and unremarkable General skin exam: no rashes or lesions noted Neuro General: patient oriented x3, gait normal, tone normal, moves all extremities, no focal motor deficits and CN's II-XI intact bilaterally Extrem Other: There is no calf swelling or tenderness. No asymmetry. No peripheral edema. Medical Decision Making Medical Decision Making MDM Narrative: The patient is a 40-year-old woman who presents to the emergency room after developing symptoms while cleaning her house with a Clorox. She has a sensation of sore throat and nasal irritation and cough. Clinically she does not appear ill. She has normal vital signs. She has a mild injection to the mucosa of the posterior pharynx but no other concerning findings. Swabs had been sent for COVID, influenza, and strep. These were all negative. I think the patient is experiencing a chemical irritation of the oral and nasal mucosa. She will be given a dose of liquid sucralfate and Maalox for relief. She otherwise looks well enough for discharge and it is advised to get a lot of fresh air and drink lot of water today. Lab Data Labs: Lab Results 05/23/25 Range/Units 09:21 COVID-19 (MARIO) Negative (Negative) COVID-19 Clin Com See Note Influenza Type A (OBED) Negative (Negative) Influenza Type B (OBED) Negative (Negative) Influenza A & B Note See Note S. pyogenes GrpA [facility] Negative (Negative) Discharge Plan Discharge Clinical Impression: Mucosal irritation of oral cavity Patient Disposition: Home, Self-Care Additional Instructions: I think that you have some chemical irritation to the lining of your nose and your throat from the Clorox you were exposed to earlier today. This should get better over time, especially if you can spend a lot of time outside with cool fresh air. Also drink lot of water today. Please follow up with your regular doctor if you have ongoing symptoms and follow through with your dental plans. If you feel significantly worse please return to the emergency department. Prescriptions: No Action ondansetron 4 mg tablet,disintegrating 4 mg PO Q8H PRN (Reason: nausea and vomiting) Qty: 10 0RF escitalopram oxalate 20 mg tablet 20 mg PO DAILY propranolol 10 mg tablet 10 mg PO TID PRN melatonin 3 mg tablet 3 - 6 mg PO BEDTIME PRN clobetasol 0.05 % ointment topical diclofenac potassium 50 mg tablet 50 mg PO TID PRN aripiprazole 2 mg tablet 2 mg PO DAILY Referrals: [facility] [Provider Group] Print Language: Cymraes
[2025-05-23] MEDS: Sucralfate Oral Suspension 1 GM/10 ML ORAL.SUSP PO (11:48)
[2025-05-23] MEDS: Magnesium Hydrox/Alum Hydrox 30 ML ORAL.SUSP PO (11:48)
[2025-05-23 12:12] VITALS: BP 112/65; PULSE 86; RESP 18; TEMP 36.7; O2SAT 100
--- OUTSIDE RECORDS SUMMARY | 2025-05-23 16:03 | XMS_ITS | Encounter Summary ---
Author Organization [employer] [facility] Address [address] [place] [address] [address] [place] [address] Care Team Providers Care Psychologist Developmental Name Role Phone Minna Whipple MD Primary Care Provider Encounter Details Date Type Department Care Team (Late st Contact Info) Description 09/03/2022 Orders Only [facility] [address] [place] [address] Zahira Grant MD [address] [place], [place] [phone] Polyarthralgia (Primary Dx) Social History Tobacco Use Types Packs/Day Years Used Date Smoking Tobacco: Never Smokeless Tobacco: Never Comments Unknown Sex and Gender Information Value Date Recorded Sex Assigned at Female 07/08/2022 10:34 AM EDT Legal Sex Female 10:34 AM EDT Gender Identity Female 07/08/2022 10:34 AM EDT Sexual Orientation Straight 07/08/2022 10 :34 AM EDT COVID-19 Exposure Response Date Recorded In the last 10 days, have yo u been in contact with someone who was confirmed or suspected to have Coronavirus/COVID-19? No / Unsure 09/03/2022 10:09 AM EST documented as of this encounter Plan of Treatment Upcoming Encounters Date Type Department Care Team (Late st Contact Info) Description 06/01/2025 9:15 AM EDT Office Visit [facility] [address] [place] [address] Zahira Grant MD [address] [place] [address] documented as of this encounter Visit Diagnoses Diagnosis Polyarthralgia- Primary Pain in joint, multiple sites documented in this encounter Care Teams Psychologist Developmental Relationship Specialty Start Date End Date Minna Whipple MD [address] [place] [phone] PCP - General Internal Medicine 06/09/18 05/31/25 documented as of this encounter
--- OUTSIDE RECORDS SUMMARY | 2025-05-23 16:03 | XMS_ITS | Encounter Summary ---
Author Organization [employer] Address [address] [facility] [address] [place] [address] Care Team Providers Care Recoating Machine Operator Name Role Phone Minna Whipple MD Primary Care Provider Reason for Visit * Reason Comments Med Refill Encounter Details Date Type Department Care Team ([facility] Contact Info) Description 04/10/2025 Refill [facility] [address] [place], [place] [phone] Elizabeth Carney FNP [address] [place] [address] Social History Tobacco Use Types Packs/Day Years Used Date Smoking Tobacco: Never Smokeless Tobacco: Never Alcohol Use Standard Drinks/Week Comments Never 0 [...] Health Questionnaire-2 Score 6 12/16/2023 Comments No Sex and Gender Information Value Date Recorded Sex Assigned at Female 07/08/2022 10:34 AM EDT Legal Sex Female 10:34 AM EDT Gender Identity Female 07/08/2022 10:34 AM EDT Sexual Orientation Straight 07/08/2022 10 :34 AM EDT documented as of this encounter Plan of Treatment Upcoming Encounters Date Type Department Care Team ([facility] st Contact Info) Description 06/01/2025 9:15 AM EDT Office Visit [facility] [address] [place] [address] Zahira Grant MD [address] [place] [address] documented as of this encounter Visit Diagnoses Not on filedocumented in this encounter Additional Health Concerns Assessment Noted Time PHQ-9 Depression Total Score: 18 024 8:56 AM EDT documented as of this encounter Care Teams Recoating Machine Operator Relationship Specialty Start Date End Date Minna Whipple MD [address] [place] [address] PCP - General Internal Medicine 06/09/18 05/31/25 documented as of this encounter
--- OUTSIDE RECORDS SUMMARY | 2025-05-23 16:03 | XMS_ITS | Encounter Summary ---
Author Organization [email or web address] [facility] Address [address] [place] [address] [address] [place] [address] Care Team Providers Care Lead Teacher Name Role Phone Minna Whipple MD Primary Care Provider Encounter Details Date Type Department Care Team (Late Contact Info) Description 10/23/2023 Telephone [facility] [address] [place], [place] [phone] Minna Whipple MD [address] [place], [place] [phone] Social History Tobacco Use Types Packs/Day Years [...] Encounters Date Type Department Care Team (Late Contact Info) Description 06/01/2025 9:15 AM EDT Office Visit [facility] [address] [place] [address] Zahira Grant MD [address] [place], [place] [phone] documented as of this encounter Visit Diagnoses Not on filedocumented in this encounter Care Teams Lead Teacher Relationship Specialty Start Date End Date Minna Whipple MD [address] [place] [address] PCP - General Internal Medicine 06/09/18 05/31/25 documented as of this encounter
--- OUTSIDE RECORDS SUMMARY | 2025-05-23 16:03 | XMS_ITS | Encounter Summary ---
Author Organization [employer] Address [address] [facility] 7[address] [place] [address] Care Team Providers Care Dermatology Physician Assistant Name Role Phone Minna Whipple MD Primary Care Provider Reason for Visit * Reason Onset Date Comments PT-1 12/30/2023 Encounter Details Date Type Department Care Team ([facility] st Contact Info) Description 12/30/2023 Telephone [facility] [address] [place] [address] Minna Whipple MD [address] [place] [address] PT-1 Social History Tobacco Use Types Packs/Day Years Used Date Smoking Tobacco: Never Smokeless Tobacco: Never Depression Answer Date Recorded Patient Health Questionnaire-9 Score 18 12/16/2023 Patient Health Questionnaire-9 Score 18 12/16/2023 Last PHQ-9: Questionnaire Data Not on file 0 12/16/2023 Housing Stability Answer Date Recorded What is your housing situation today? I have cheng bettye 12/16/[address] you li [...] Patient Health Questionnaire-2 Score 6 12/16/2023 Comments Unknown Sex and Gender Information Value Date Recorded Sex Assigned at Female 07/08/2022 10:34 AM EDT Legal Sex Female 10:34 AM EDT Gender Identity Female 07/08/2022 10:34 AM EDT Sexual Orientation Straight 07/08/2022 10 :34 AM EDT documented as of this encounter Miscellaneous Notes * Telephone Encounter - Maureen Elias - 12/30/2023 3:19 PM EDT PT-1 submitted for patient. They will receive a letter of approval or denial in the mail. * Telephone Encounter - Kurt Mir - 12/30/2023 12:55 PM EDT Patient calling requesting PT1 Home Address verified: Y/N: Yes Provider name or facility name: [facility]astic [facility] Facility Address: [address] [place] [id number] Escort needed: Y/N: No Do you have a wheelchair: Y/N: No If yes- Manual or electric: N/A Visits: 3 monthly documented in this encounter Plan of Treatment Upcoming Encounters Date Type Department Care Team (Late st Contact Info) Description 06/01/2025 9:15 AM EDT Office Visit [facility] & PEDS [address] [place] [address] Zahira Grant MD [address] [place] [address] documented as of this encounter Visit Diagnoses Not on filedocumented in this encounter Additional Health Concerns Assessment Noted Time PHQ-9 Depression Total Score: 18 024 8:56 AM EDT documented as of this encounter Care Teams Dermatology Physician Assistant Relationship Specialty Start Date End Date Minna Whipple MD [address] [place] [id number] PCP - General Internal Medicine 06/09/18 05/31/25 documented as of this encounter
--- OUTSIDE RECORDS SUMMARY | 2025-05-23 16:03 | XMS_ITS | Clinical Summary ---
Author Organization [facility] Address [address] [facility] [facility] [address] [place] [phone] Phone Care Team Providers Care Litharge Mill Operator Name Role Phone Katt Sandoval MD Primary Care Provider [phone] Allergies No known active allergies Medications ARIPiprazole (ABILIFY) 10 MG tablet TOME 1 TABLETA POR V A ORAL TODOS LOS D 4 Active diclofenac potassium (CATAFLAM) 50 MG tablet TOME 1 TABLETA POR VIA ORAL ANNIA VECES AL BAL CUANDO SEA NECESARIO 4 Active ergocalciferol (DRISDOL) 50,000 unit capsule TOME 1 CAPSULA POR VIA ORAL ONE TIME PER WEEK 4 Active propranoloL (INDERAL) 10 MG immediate release tablet TOME CHRISTINE TABLETA ANNIA VECES AL D A CUANDO SEA NECESARIO 4 Active Family History Medical History Relation Comments Cancer Mother Relation Status Comments Father Alive Mother Social History Tobacco Use Types Packs/Day Years Used Date Smoking Tobacco: Never Smokeless Tobacco: Never Tobacco Cessation:Counseling Given: Not Answered Alcohol Use Standard Drinks/Week Comments Not Currently 0 (1 standard drink = 0.6 oz pur e alcohol) Education Answer Date Recorded Are you interested in more education? Not on jordan e 12/16/2023 Are you concerned about learning? Not on file 12/16/2023 No 12/16/2023 No 12/16/2023 Digital Access Answer Date Recorded No 12/16/2023 No 12/16/2023 Reliable internet access at home? Not on file 12/16/2023 Device with a working camera? Not on file Comments Unknown Sex and Gender Information Value Date Recorded Sex Assigned at Not on file Legal Sex Female 11:12 AM EDT Gender Identity Not on file Sexual Orientation Not on file Last Filed Vital Signs Vital Sign Reading Time Taken Comments Blood Pressure 111/73 03/17/2024 11:44 AM EDT Pulse 76 03/17/2024 11:44 AM EDT Temperature - - Respiratory Rate - - Oxygen Saturation - - Inhaled Oxygen Concentration - - Weight 67 kg (147 lb 9.6 oz) 03/17/2024 11:44 AM EDT Height 157.5 cm (5' 2 ) 03/17/2024 11:44 AM EDT Body Mass Index 27 03/17/2024 11:44 AM EDT Plan of Treatment Health Maintenance Due Date Last Done Comments Adult Td,Tdap Booster 1985 DEPRESSION SCREENING 1997 HEPATITIS C SCREENING 2003 HIV ONE-TIME SCREENING (18-6 5 YEARS) 2003 PAP SMEAR 2006 SCREENING FOR DIABETES 02/17/2020 MAMMOGRAM 2025 06/17/2018 INFLUENZA VACCINE (#1) 2025 COVID-19 VACCINE ( - 2023-2 5 season) 2025 SMOKING STATUS SCREENING (On ce After 26 Yrs) Completed 03/17/2024 HEPATITIS A VACCINES Aged Out No long er eligible based on patient's age to complete this topic HIB VACCINES Aged Out No longer eligi ble based on patient's age to complete this topic MENINGOCOCCAL VACCINES (ACWY) Aged Out No longer eligible based on patient's age to complete this topic MENINGOCOCCAL VACCINES (B) Aged Out N o longer eligible based on patient's age to complete this topic PNEUMOCOCCAL VACCINES (0-49 years) Aged Out No longer eligible based on patient's age to complete this topic Medical Devices Not on file Insurance [facility] C3 ACO C3 ACO C3 ACO Care Teams Litharge Mill Operator Relationship Specialty Start Date End Date Katt Sandoval MD [address] [place] [phone] PCP - General Internal Medicine 12/16/23 Additional Source Comments The information contained in this document represents components of the legal health record. It is not the complete legal health record.[facility]
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
--- OUTSIDE RECORDS SUMMARY | 2025-05-23 16:03 | XMS_ITS | Encounter Summary ---
Author Organization [employer] Address [address] [place] [address] 7 [place] [address] Care Team Providers Care Industrial Retrofit Designer Name Role Phone Minna Whipple MD Primary Care Provider Reason for Visit * Reason Onset Date Comments Pt1 08/05/2023 Encounter Details Date Type Department Care Team ([facility] Contact Info) Description 08/05/2023 Telephone [facility] [address] [place] [address] Minna Whipple MD [address] [place] [address] Pt1 Social History Tobacco Use Types Packs/Day Years [...] * Telephone Encounter - Maureen Elias - 08/05/2023 4:33 PM EST PT-1 submitted for patient. They will receive a letter of approval or denial in the mail. * Telephone Encounter - Eleanor Tate Mamta - 08/05/2023 2:15 PM EST PT1 Name of facility: [facility] Specialty: Future appt's Location: [address] [place] [id number] Date: n/a Time: n/a fax: [phone] wheelchair: No Massage Operator: Yes (mother: Lidia Dey) All future Appt's documented in this encounter Plan of Treatment Upcoming Encounters Date Type Department Care Team (Late st Contact Info) Description 06/01/2025 9:15 AM EDT Office Visit [facility] [address] [place] [address] Zahira Grant MD [address] [place] [address] documented as of this encounter Visit Diagnoses Not on filedocumented in this encounter Care Teams Industrial Retrofit Designer Relationship Specialty Start Date End Date Minna Whipple MD [address] [place] [address] PCP - General Internal Medicine 06/09/18 05/31/25 documented as of this encounter
--- OUTSIDE RECORDS SUMMARY | 2025-05-23 16:03 | XMS_ITS | Encounter Summary ---
Author Organization [employer] Address [address] [place] [address] [address] [place] [address] Care Team Providers Care Marketing Mgr Name Role Phone Minna Whipple MD Primary Care Provider Reason for Visit * Reason Onset Date Comments provider switch 03/17/2025 Encounter Details Date Type Department Care Team ([facility] st Contact Info) Description 03/17/2025 Telephone [facility] [address] [place] [address] Minna Whipple MD [address] [place] [address] provider switch Social History Tobacco Use Types Packs/Day Years [...] encounter Miscellaneous Notes * Telephone Encounter - Najma Amado RN - 03/24/2025 12:57 PM EDT Returned call to pt regarding request for TP. Pt states she feels comfortable with a female provider. Pt agrees to TP appt in May. Pt then stated she called triage yesterday and was advised to go to [facility] as no appts were available yesterday. Pt stated she would prefer to a provider in [facility]. Pt stated unable to come in this afternoon to see PCP. Pt agrees to see provider next week as pt needs PT1 and needs 3 day notice. Triage note documented in previous encounter. * Telephone Encounter - Eliezer Campuzano - 03/17/2025 2:02 PM EDT Tc from pt requesting to switch to a female provider. documented in this encounter Plan of Treatment Upcoming Encounters Date Type Department Care Team (Late st Contact Info) Description 06/01/2025 9:15 AM EDT Office Visit [facility] [address] [place] [address] Zahira Grant MD [address] [place] [address] documented as of this encounter Visit Diagnoses Not on filedocumented in this encounter Additional Health Concerns Assessment Noted Time PHQ-9 Depression Total Score: 18 024 8:56 AM EDT documented as of this encounter Care Teams Marketing Mgr Relationship Specialty Start Date End Date Minna Whipple MD [address] [place] [phone] PCP - General Internal Medicine 06/09/18 05/31/25 documented as of this encounter
--- OUTSIDE RECORDS SUMMARY | 2025-05-23 16:03 | XMS_ITS | Encounter Summary ---
Author Organization [employer] Address [address] [facility] 7t [place] [address] Care Team Providers Care Instructor Ground Services Name Role Phone Minna Whipple MD Primary Care Provider Reason for Visit * Reason Onset Date Comments PT-1 03/01/2025 Encounter Details Date Type Department Care Team ([facility] st Contact Info) Description 03/01/2025 Telephone [facility] MEDICINE [address] [place] [address] Minna Whipple MD [address] [place] [address] PT-1 Social History Tobacco Use Types Packs/Day [...] encounter Miscellaneous Notes * Telephone Encounter - Kurt Mir - 03/01/2025 10:11 AM EDT Patient calling requesting PT1 Home Address verified: Y/N: Yes Provider name or facility name: [facility] Facility Address: [address] [place] [address] Escort needed: Y/N: No Do you have a wheelchair: Y/N: No If yes- Manual or electric: N/A Visits: 3 times monthly documented in this encounter Plan of Treatment Upcoming Encounters Date Type Department Care Team ([facility] Contact Info) Description 06/01/2025 9:15 AM EDT Office Visit [facility] CHC MED & PEDS [address] [place] [address] Zahira Grant MD [address] [place] [address] documented as of this encounter Visit Diagnoses Not on filedocumented in this encounter Additional Health Concerns Assessment Noted Time PHQ-9 Depression Total Score: 18 024 8:56 AM EDT documented as of this encounter Care Teams Instructor Ground Services Relationship Specialty Start Date End Date Minna Whipple MD [address] [place] [address] PCP - General Internal Medicine 06/09/18 05/31/25 documented as of this encounter
== END 2025-05-23 12:13 | disposition home or self-care (01) ==
PROVIDERS: Emergency Provider Emergency Medicine
DX: J02.9 Acute pharyngitis, unspecified (principal)
CPT/HCPCS: 87502; 87635; 87651; 99283

== ENCOUNTER 2025-06-01 10:41 | Outpatient (REF) | payer MEDICAID, SELFPAY ==
--- OUTSIDE RECORDS SUMMARY | 2025-06-01 09:15 | XMS_ITS | Encounter Summary ---
Author Organization [facility] [facility] Address [address] [place] [address] 7t [place] [address] Care Team Providers Care Educational Consultant Name Role Phone Zahira Grant MD Primary Care Provider [phone] Reason for Referral * Consultation (Routine) - Pending Review Specialty Diagnoses / Procedures Referred By Andrew charles Referred To Contact Physical Therapy Diagnoses Spasm of paraspinal muscle Zahira Grant MD [address] [place] [address] Phone: tel: fax: Referral ID Status Reason Start Date Expiration Date Visits Requested Visits Authorized [id number] Pending Review Specialty Services Required 06/01/2025 06/01/2026 1 1 * Hospital - Outpatient (Routine) - Pending Review Specialty Diagnoses / Procedures Referred By Andrew charles Referred To Contact Diagnoses Sleep apnea, unspecified type Procedures Home sleep test Zahira Grant MD [address] [place] [address] Phone: tel: fax: [address] Phone: tel: fax: Referral ID Status Reason Start Date Expiration Date V isits Requested Visits Authorized [id number] Pending Review 06/01/2025 06/01/2026 1 1 * Imaging (Routine) - Authorized Specialty Diagnoses / Procedures Referred By Andrew charles Referred To Contact Radiology Diagnoses Breast cancer screening by mammogram Procedures BI Mammogram Screening Tomosynthesis Bilateral Zahira Grant MD [address] [place] [address] Phone: tel: fax: [address] Phone: tel: fax: Referral ID Status Reason Start Date Expiration Date V isits Requested Visits Authorized [id number] Authorized 06/01/2025 06/01/2026 1 1 Encounter Details Date Type Department Care Team (Late st Contact Info) Description 06/01/2025 9:15 AM EDT Office Visit [facility] CHC MED & PEDS [address] [place] [address] Zahira Grant MD [address] [place] [address] History of uterine fibroid (Primary Dx); Abnormal uterine bleeding; Vitamin D deficiency; Breast cancer screening by mammogram; Encounter for immunization; Overweight; Encounter for health-related screening; Sleep apnea, unspecified type; Spasm of paraspinal muscle; Chronic pain of left knee Social History Tobacco Use Types Packs/Day Years Used Date Smoking Tobacco: Never Passive Smoke Exposure: Never Smokeless Tobacco: Never Tobacco Cessation:Counseling Given: [...] housing situation today? I have cheng wen 05/25/[address] you li ve. Do you have problems with any of the following? None of the above 05/25/2025 Food Insecurity Answer Date Recorded Within the past 12 months, y ou worried that your food would run out before you got money to buy more: Never True 06/01/2025 Within the past 12 months,th e food you bought just didn't last and you didn't have enough money to get more: Never True Transportation Answer Date Recorded In the past 12 months, has l ack of transportation kept you from medical appts, meetings, work or from getting things needed for daily living? No 05/25/2025 Utilities Answer Date Recorded In the past 12 months, has t he electric, gas, oil or water company threatened to shut off services in your home? No 05/25/2025 Depression Answer Date Recorded Patient Health Questionnaire-2 Score 6 12/16/2023 Internet Access Answer Date Recorded Internet Access Q1 Yes 05/25/2025 Internet Access Q2 Not on file 05/25/2025 Comments No Sex and Gender Information Value Date Recorded Sex Assigned at Female 07/08/2022 10:34 AM EDT Legal Sex Female 10:34 AM EDT Gender Identity Female 07/08/2022 10:34 AM EDT Sexual Orientation Straight 07/08/2022 10 :34 AM EDT documented as of this encounter Last Filed Vital Signs Vital Sign Reading Time Taken Comments Blood Pressure 124/84 06/01/2025 9:21 AM EDT Pulse 76 06/01/2025 9:21 AM EDT Temperature 36.8 C (98.3 F) 06/01/2025 9:21 AM EDT Respiratory Rate 20 06/01/2025 9:21 AM EDT Oxygen Saturation 99% 06/01/2025 9:21 AM EDT Inhaled Oxygen Concentration - - Weight 69.3 kg (152 lb 12.8 oz) 06/01/2025 9:21 AM EDT Height 156 cm (5' 1.42 ) 06/01/2025 9:21 AM EDT Body Mass Index 28.48 06/01/2025 9:21 AM EDT documented in this encounter Plan of Treatment Scheduled Orders Name Type Priority Associated Diagnoses Orde r Schedule BI Mammogram Screening Tomosynthesis Bilateral Imaging Routine Breast cancer screening by mammogram Expected: 06/01/2025, Expires: 08/01/2026 CBC auto differential Lab Routine Overweight Expected: 06/01/2025 (Approximate), Expires: 06/01/2026 Comprehensive Metabolic Panel Lab Routine Overweight Expected: 06/01/2025 (Approximate), Expires: 06/01/2026 TSH W/Reflex to FT4 Lab Routine Overweight Expected: 06/01/2025 (Approximate), Expires: 06/01/2026 Vitamin D, 25-Hydroxy, Total, Immunoassay Lab Routine Vitamin D deficiency Expected: 06/01/2025 (Approximate), Expires: 06/01/2026 HIV-1/2 Antigen and Antibodies, Fourth Generation, with Reflexes Lab Routine Encounter for health-related screening Expected: 06/01/2025 (Approximate), Expires: 06/01/2026 Hepatitis C Antibody with Reflex to HCV, RNA, Quantitative, Real-Time PCR Lab Routine Encounter for health-related screening Expected: 06/01/2025, Expires: 06/01/2026 Hepatitis B Surface Antibody, Qualitative Lab Routine Encounter for health-related screening Expected: 06/01/2025 (Approximate), Expires: 06/01/2026 Hepatitis B Core Antibody, Total Lab Routine Encounter for health-related screening Expected: 06/01/2025 (Approximate), Expires: 06/01/2026 Hepatitis B surface antigen, EIA Lab Routine Encounter for health-related screening Expected: 06/01/2025 (Approximate), Expires: 06/01/2026 Lipid Panel, Standard Lab Routine Overweight Expected: 06/01/2025 (Approximate), Expires: 06/01/2026 Home sleep test Sleep Center Routine Sleep apnea, unspecified type Expected: 06/01/2025 (Approximate), Expires: 06/01/2026 XR Thoracic Spine 2 Views Imaging Routine Spasm of paraspinal muscle Expected: 06/01/2025, Expires: 06/01/2026 XR Lumbar Spine 2-3 Views Imaging Routine Spasm of paraspinal muscle Expected: 06/01/2025, Expires: 06/01/2026 XR CERVICAL SPINE 3V Imaging Routine Spasm of paraspinal muscle Expected: 06/01/2025, Expires: 06/01/2026 XR Knee 3 Views Left Imaging Routine Chronic pain of left knee Expected: 06/01/2025, Expires: 06/01/2026 Scheduled Referrals Name Type Priority Associated Diagnoses Orde r Schedule Referral to Physical Therapy Outpatient Referral Routine Spasm of paraspinal muscle Expected: 06/01/2025 (Approximate), Expires: 06/01/2026 documented as of this encounter Visit Diagnoses Diagnosis History of uterine fibroid- Primary Abnormal uterine bleeding Unspecified disorder of menstruation and other abnormal bleeding from female genital tract Vitamin D deficiency Breast cancer screening by mammogram Encounter for immunization Overweight Encounter for health-related screening Sleep apnea, unspecified type Spasm of paraspinal muscle Chronic pain of left knee documented in this encounter Additional Health Concerns Assessment Noted Time PHQ-9 Depression Total Score: 18 024 8:56 AM EDT documented as of this encounter Care Teams Educational Consultant Relationship Specialty Start Date End Date Zahira Grant MD [address] [place] [address] PCP - General Family Medicine 06/01/25 Lauren Srivastava NP Nurse Practitioner Psychiatry 09/08/20 documented as of this encounter
--- OUTSIDE RECORDS SUMMARY | 2025-06-01 13:23 | XMS_ITS | Encounter Summary ---
Author Organization [employer] [facility] Address [address] [facility] 7t [place] [address] Care Team Providers Care Superintendent Oil Well Services Name Role Phone Zahira Grant MD Primary Care Provider [phone] Encounter Details Date Type Department Care Team (Latest Contact Info) Description 06/01/2025 Travel Social History Tobacco Use Types Packs/Day Years Used Date Smoking Tobacco: Never Passive Smoke Exposure: Never Smokeless Tobacco: Never Alcohol Use Standard [...] as of this encounter Plan of Treatment Not on file documented as of this encounter Visit Diagnoses Not on filedocumented in this encounter Additional Health Concerns Assessment Noted Time PHQ-9 Depression Total Score: 18 024 8:56 AM EDT documented as of this encounter Care Teams Superintendent Oil Well Services Relationship Specialty Start Date End Date Zahira Grant MD [address] [place] [address] PCP - General Family Medicine 06/01/25 Lauren Srivastava NP Nurse Practitioner Psychiatry 09/08/20 documented as of this encounter
--- OUTSIDE RECORDS SUMMARY | 2025-06-01 13:23 | XMS_ITS | Encounter Summary ---
Author Organization [employer] Address [address] [facility] 7 [place] [address] Care Team Providers Care Rolling Mill Operator Helper Name Role Phone Minna Whipple MD Primary Care Provider [phone] Zahira Grant MD Primary Care Provider [phone] Reason for Visit * Reason Onset Date Comments PT-1 12/30/2023 Encounter Details Date Type Department Care Team ([facility] st Contact Info) Description 12/30/2023 Telephone [facility] MEDICINE [address] [place] [address] Minna Whipple MD [address] [place] [address] PT-1 Social History Tobacco Use Types Packs/Day [...] name: Plastic [facility] Facility Address: [address] [place] [address] Escort needed: Y/N: No Do you have a wheelchair: Y/N: No If yes- Manual or electric: N/A Visits: 3 monthly documented in this encounter Plan of Treatment Not on file documented as of this encounter Visit Diagnoses Not on filedocumented in this encounter Additional Health Concerns Assessment Noted Time PHQ-9 Depression Total Score: 18 024 8:56 AM EDT documented as of this encounter Care Teams Rolling Mill Operator Helper Relationship Specialty Start Date End Date Minna Whipple MD [address] [place] [address] PCP - General Internal Medicine 06/09/18 05/31/25 Zahira Grant MD [address] [place] [address] PCP - General Family Medicine 06/01/25 Lauren Srivastava NP Nurse Practitioner Psychiatry 09/08/20 documented as of this encounter
--- OUTSIDE RECORDS SUMMARY | 2025-06-01 13:23 | XMS_ITS | Encounter Summary ---
Author Organization [employer] Address [address] [facility] 7t [place] [address] Care Team Providers Care Retail Merchandising Specialist Name Role Phone Minna Whipple MD Primary Care Provider [phone] Zahira Grant MD Primary Care Provider [phone] Reason for Visit * Reason Comments Med Refill Encounter Details Date Type Department Care Team ([facility] st Contact Info) Description 04/10/2025 Refill [facility] CHC MED & PEDS [address] [place], [place] [phone] Elizabeth Carney FNP [address] [place], [place] [phone] Social History Tobacco Use Types Packs/Day Years [...] documented as of this encounter Care Teams Retail Merchandising Specialist Relationship Specialty Start Date End Date Minna Whipple MD [address] [place] [address] PCP - General Internal Medicine 06/09/18 05/31/25 Zahira Grant MD [address] [place] [address] PCP - General Family Medicine 06/01/25 Lauren Srivastava NP Nurse Practitioner Psychiatry 09/08/20 documented as of this encounter
--- OUTSIDE RECORDS SUMMARY | 2025-06-01 13:23 | XMS_ITS | Encounter Summary ---
Author Organization [employer] Address [address] [facility] 7 [place] [address] Care Team Providers Care Plate Painter Name Role Phone Minna Whipple MD Primary Care Provider [phone] Zahira Grant MD Primary Care Provider Reason for Visit * Reason Onset Date Comments provider switch 03/17/2025 Encounter Details Date Type Department Care Team ([facility] Contact Info) Description 03/17/2025 Telephone C CHC MED & PEDS [address] [place], [place] [phone] Minna Whipple MD [address] [place] [address] provider switch Social History Tobacco Use Types [...] yesterday and was advised to go to [facility] as no appts were available yesterday. Pt stated she would prefer to a provider in [facility]. Pt stated unable to come in this [...] documented as of this encounter Care Teams Plate Painter Relationship Specialty Start Date End Date Minna Whipple MD [address] [place] [address] PCP - General Internal Medicine 06/09/18 05/31/25 Zahira Grant MD [address] [facility] [place] [address] PCP - General Family Medicine 06/01/25 Lauren Srivastava NP Nurse Practitioner Psychiatry 09/08/20 documented as of this encounter
--- OUTSIDE RECORDS SUMMARY | 2025-06-01 13:23 | XMS_ITS | Encounter Summary ---
Author Organization [employer] Address [address] [place] [address] 7 [place] [address] Care Team Providers Care Photo Manager Name Role Phone Minna Whipple MD Primary Care Provider [phone] Zahira Grant MD Primary Care Provider [phone] Reason for Visit * Reason Onset Date Comments Pt1 08/05/2023 Encounter Details Date Type Department Care Team ([facility] st Contact Info) Description 08/05/2023 Telephone [facility] CHC MED & PEDS [address] [place], [place] [phone] Minna Whipple MD [address] [place] [address] Pt1 Social History Tobacco Use Types Packs/Day [...] the mail. * Telephone Encounter - Eleanor Cazaresrero - 08/05/2023 2:15 PM EST PT1 Name of facility: [facility] Specialty: Future appt's Location: [address], [place] [address] Date: n/a Time: n/a fax: [phone] wheelchair: No Tube Operator: Yes (mother: Lidia Dey) All future Appt's documented in this encounter Plan of Treatment Not on file documented as of this encounter Visit Diagnoses Not on filedocumented in this encounter Care Teams Photo Manager Relationship Specialty Start Date End Date Minna Whipple MD [address] [place] [address] PCP - General Internal Medicine 06/09/18 05/31/25 Zahira Grant MD [address] [place] [address] PCP - General Family Medicine 06/01/25 Lauren Srivastava NP Nurse Practitioner Psychiatry 09/08/20 documented as of this encounter
--- OUTSIDE RECORDS SUMMARY | 2025-06-01 13:23 | XMS_ITS | Clinical Summary ---
Author Organization [employer] Address [address] [facility] 7t [place] [address] Care Team Providers Care Er Registrar Name Role Phone Zahira Grant MD Primary Care Provider [phone] Allergies No known active allergies Medications capsicum (Zostrix) 0.075 % topical cream Apply topically every 8 (eight) hours. 01/11/20 22 Active propranolol (Inderal) 10 MG tablet TAKE ONE (1) TABLET BY MOUTH TWICE A DAY, NEEDED FOR ANXIETY 04/03/20 22 Active escitalopram (Lexapro) 10 MG tablet Take 10 mg by mouth in the morning. 02/15/20 22 Active melatonin 3 MG tablet TAKE ONE TO TWO (1-2) TABLETS BY MOUTH AT BEDTIME, NEEDED 04/10/20 22 Active traZODone (Desyrel) 50 MG tablet TAKE 1-2 TABLETS BY MOUTH AT BEDTIME NEEDED FOR SLEEP 10/16/19 24 Active ergocalciferol (Vitamin D2) 1.25 MG (23582 UT) capsule TOME 1 CAPSULA POR VIA ORAL ONE TIME PER WEEK 13 capsule 1 09/13/19 25 Active Diclofenac Sodium 1 % gel APPLY 2 GRAMS TOPICALLY 3 TIMES DAILY. 100 g 1 02/09/20 25 Active diclofenac (Cataflam) 50 MG tablet TAKE 1 TABLET BY MOUTH 3 TIMES A DAY NEEDED 60 tablet 03/23/20 25 Active clobetasol (Temovate) 0.05 % ointmentIndica tions:Third degree burn due to scalding Apply topically 2 times daily. 90 g 1 03/31/20 25 Active alpha tocopherol (Vitamin E) 400 units capsule Take 1 capsule (400 Units) by mouth Once per day. Scar massage 30 capsule 11 03/31/20 25 026 Active ARIPiprazole (Abilify) 10 MG tablet TOME 1 TABLETA POR V A ORAL TODOS LOS D 05/06/20 25 Active biotin 10 MG capsule Take by mouth. Active ferrous sulfate 325 (65 Fe) MG tablet 1 tablet 1 (one) time each day. 12/20/19 21 025 Discontinued( erapy completed) ARIPiprazole (Abilify) 2 MG tablet TOME CHRISTINE TABLETA TODOS LOS D 11/10/19 24 025 Discontinued escitalopram (Lexapro) 20 MG tablet TOME CHRISTINE TABLETA TODOS LOS D 11/10/19 24 025 Discontinued( erapy completed) metroNIDAZOLE (Flagyl) 500 MG tablet TOME CHRISTINE TABLETA POR V A ORAL 2 TIMES DAILY FOR 7 DAYS 03/23/20 25 025 Discontinued( erapy completed) ARIPiprazole (Abilify) 15 MG tablet TOME 1 TABLETA POR V A ORAL TODOS LOS D 03/21/20 25 025 Discontinued mineral oil-hydrophili c petrolatum (Aquaphor) ointment Apply topically if needed for dry skin (keloid). 396 g 11 03/31/20 25 025 Discontinued( erapy completed) lidocaine-pril ocaine (Emla) 2.5-2.5 % cream Apply topically if needed in the morning and at bedtime for moderate pain (keloid). 30 g 3 03/31/20 25 025 Discontinued( erapy completed) Active Problems Problem Noted Date Diagnosed Date History of uterine fibroid 06/01/2025 Abnormal uterine bleeding 06/01/2025 Vitamin D deficiency 06/01/2025 Sleep apnea 06/01/2025 Spasm of paraspinal muscle 06/01/2025 Chronic pain of left knee 06/01/2025 Keloid 04/05/2025 Assessment & Plan (04/05/2025 1:43 PM EDT): - start using softening creams regularly, Vitamin E oil, aquaphor, and Clobetasol (all ordered) - continue to use Emla cream for pain up to three times daily - refer to plastic surgeon at [facility] if they would offer any type of [...] Encounters Date Type Department Care Team Description 06/01/2025 9:15 AM EDT Office Visit [facility] MED & PEDS [address] [place] [address] Zahira Grant MD History of uterine fibroid (Primary Dx); Abnormal uterine bleeding; Vitamin D deficiency; Breast cancer screening by mammogram; Encounter for immunization; Overweight; Encounter for health-related screening; Sleep apnea, unspecified type; Spasm of paraspinal muscle; Chronic pain of left knee 06/01/2025 Travel 05/25/2025 Patient Outreach [address] [address] Minna Whipple MD Care Coordination (CH[facility] outreach for SDOH food needs-referral completed /) 05/25/2025 Patient Outreach [facility] MEDICINE [address] [place] [address] Minna Whipple MD Pre-visit Planning (SDOH screening negative and Tobacco screening negative) 04/10/2025 Refill [facility] MED & PEDS [address] [place] [address] Elizabeth Carney FNP 03/31/2025 11:00 AM EDT Office Visit [facility] MED & PEDS [address] [place] [address] Tere Isbell MD Keloid (Primary Dx); Dietary counseling; Exercise counseling; Overweight; Third degree burn due to scalding 03/31/2025 Travel 03/22/2025 Telephone [facility] MED & PEDS [address] [place], [place] [phone] Minna Whipple MD Nurse Triage 03/21/2025 Refill [facility] MED & PEDS [address] [place], [place] [phone] Minna Whipple MD 03/18/2025 Telephone [facility] MED & PEDS [address] [place] [address] Que Schmitz MD No Show 03/17/2025 Telephone [facility] MED & PEDS [address] [place] [address] Minna Whipple MD provider switch 03/17/2025 Telephone [facility] MED & PEDS [address] [place], [place] [phone] Minna Whipple MD Nurse Triage 03/07/2025 Orders Only [facility] MEDICINE [address] [place] [address] Joyce Rodrigues CNM 03/07/2025 Results Follow-Up [address] [address] Joyce Rodrigues CNM POCT urinalysis dipstick manually resulted, Bacterial Vaginosis Panel, Culture, Urine, Routine 03/03/2025 10:15 AM EDT Office Visit [address] [address] Joyce Rodrigues CNM Urinary urgency (Primary Dx); Vaginal odor; Intermenstrual bleeding; Fibroids; Cyst of left Bartholin gland 03/03/2025 Travel 03/02/2025 Telephone [facility] MEDICINE [address] [place] [address] Joyce Rodrigues CNM chart prep 03/02/2025 Travel 03/01/2025 Patient Outreach [facility] MEDICINE [address] [place] [address] Minna Whipple MD Care Coordination (CHW outreach for SDOH PT-1 and food needs-LVM ) 03/01/2025 Telephone [facility] MEDICINE [address] [place] [address] Minna Whipple MD PT-1 from Last 3 Months Immunizations Immunization Administration Dates Next Due Influenza injectable quadriv alent IIV4 with preservative 07/05/2019 Influenza injectable quadrivalent preservative f ree 05/31/2021 Influenza, Injectable, MDCK, preservative free 1 10/14/2023 Influenza, seasonal, injectable, preservative fr ee 06/01/2025 Tdap 06/01/2025 Family History Medical History Relation Name Comments [...] Q2 Not on file 05/25/2025 Comments No Intention Date Recorded No desire [...] Mass Index 28.48 06/01/2025 9:21 AM EDT Plan of Treatment Health Maintenance Due Date Last Done Comments HIV Screening 1985 Alcohol/Substance Use Screening 1997 HPV Vaccines (1 - 3-dose series) 02/17/2000 Hepatitis C Screening 2003 Hepatitis B Vaccines (1 of 3 - 19+ 3-dose series) 02/17/2004 Depression Monitoring 06/16/2024 12/16/2023, 024 Mammogram 2025 06/17/2018, 06/17/2018 COVID-19 Vaccine ( season) 2025 Disability Screening 01/21/2026 01/21/2025 Family Planning (PISQ) 03/03/2026 03/03/2025 SDOH Screening 06/01/2026 06/01/2025 Tobacco Screening 06/01/2026 06/01/2025 Cervical Cancer Screening 06/07/2029 HPV/Cotest 06/07/2029 06/07/2024, 06/09/2018 Pap Smear 06/07/2029 06/07/2024 Zoster Vaccines (1 of 2) 2035 DTaP/Tdap/Td Vaccines (2 - Td or Tdap) 06/01/2035 06/01/2025 RSV Patients and Patients Aged 60 years or older (1 - 1-dose 75+ series) 02/17/2060 Influenza Vaccine Completed 06/01/2025, , 05/31/2021, Additional history exists HIB Vaccines Aged Out No longer eligi [...] 49) Years Aged Out No longer eligible based on [...] structure / Unknown 03/03/2025 11:01 AM EDT Joyce DE LA ROSA POINT OF CARE TEST ENTER/ EDIT ORDERABLES [...] Media Lot # [id number] Lot# Expiration Date [id number] Urine 03/03/2025 10:4 0 AM EDT Joyce DE LA ROSA POINT OF CARE TEST ENTER/ EDIT ORDERABLES Final Result * (ABNORMAL) Bacterial Vaginosis Panel (03/03/2025 10:39 AM EDT) TRICHOMONAS VAGINALIS DETECTION BY PCR NOT DETECTED Not Detect [facility] BACTERIAL VAGINOSIS DETECTION BY PCR POSITIVE(A) Negative [facility] Comment:The BV organism targ ets [...] DETECTION BY PCR NOT DETECTED Not Detect [facility] Adriana glab krusei PCR NOT DETECTED Not Detect [facility] Swab Vaginal structure / Unknown 03/03/2025 10:39 AM EDT 03/03/2025 4:34 PM EDT Joyce Rodrigues [facility] MICROBIOLOGY - GENERA L ORDERABLES Final Result [facility] [address] [place] [phone] * Culture, Urine, Routine (03/03/2025 10:35 AM EDT) Urine Urine specimen obtained by clean catch procedure / Unknown 03/03/2025 10:35 AM EDT 03/03/2025 4:35 PM EDT Comment:UACC Narrative [facility] - 03/05/2025 1:00 PM EDT Urine Culture Report Result Urine Culture 10,000 to 50,000 cfu/ml Urine Culture Mixed bacterial giana characteristic of Urine Culture urogenital contamination. Specimen Source: Urine clean catch Joyce Lilia [facility] MICROBIOLOGY - GENERA L ORDERABLES Final Result [facility] [address] [place] [address] [phone] * ThinPrep Imaging Pap and HPV mRNA E6/E7 (06/07/2024 11:04 AM EDT) HPV nRNA E6/E7 Not Detected Not Detected [facility] Comment:Methodology: Transcr iption-Mediated AmplificationThis assay detects E6/E7 viral messenger RNA (mRNA) from 14high-risk HPV types (16,18,31,33,35,39,45,51,52,56,58,59,66,68).Cervical sources are required for HPV testing.If a vaginal source from a patient who has had atotal hysterectomy with removal of cervix wassubmitted, please contact the testing laboratoryfor alternative testing options.For additional information, please refer [email or web address](This link if provided for information/educational purposes only.)THIS TEST WAS PERFORMED AT:[address] [place] [phone] SHORT MD SOURCE: SEE NOTE [facility] Comment:Cervix Report Status: [facility] Clinical Information: SEE NOTE [facility] Comment:None given LMP: SEE NOTE [facility] Comment:NONE GIVEN Prev. PAP: SEE NOTE [facility] Comment:NONE GIVEN Prev. BX: SEE NOTE [facility] Comment:NONE GIVEN Statement Of Adequacy: SEE NOTE [facility] Comment:Satisfactory for jony luation.Endocervical/transformation zone component absent. General Categorization: [facility] Interpretation/Result: SEE NOTE [facility] Comment:Cytology Results: Ne gative for intraepitheliallesion or malignancy. Cytology Comment SEE NOTE [facility] Comment:This Pap test has be en evaluated with computerassisted technology. Franchise Sales Representative: SEE NOTE [facility] Comment:MSM, CT(ASCP)CT scre ening location: [place] [address] Review Franchise Sales Representative: INSherman [facility] Pathologist [facility] PAP Infection SEE NOTE [facility] Comment:Shift in vaginal rui ra suggestive of bacterialvaginosis. See Note SEE NOTE [facility] Comment:EXPLANATORY NOTE:The Pap is a screening test for cervical cancer. It isnot a diagnostic test and is subject to false negativeand false positive results. It is most reliable when asatisfactory sample, regularly obtained, is submittedwith relevant clinical findings and history, and whenthe Pap result is evaluated along with historic andcurrent clinical information. 06/07/2024 11:0 4 AM EDT 06/07/2024 5:19 PM EDT Narrative [facility] - 06/09/2024 2:45 PM EDT SEE SCANNED RESULTS IN EMRCERVIX Joyce [facility] PATHOLOGY ORDERABLES Final Result [facility] [address] [place] [address] [phone] * Mammography (06/17/2018) Mammogram Perform Anatomical Region Laterality Modality Other Historical Provider HEALTH MAINTENANCE Final Result from Last 3 Months or Most Recently Relevant to Health Maintenance Insurance [facility] C3 Care Teams Er Registrar Relationship Specialty Start Date End Date Zahira Grant MD [address] [place] [address] PCP - General Family Medicine 06/01/25 Lauren Srivastava NP Nurse Practitioner Psychiatry 09/08/20
--- OUTSIDE RECORDS SUMMARY | 2025-06-01 13:23 | XMS_ITS | Encounter Summary ---
Author Organization [employer] Address [address] [place] [address] 7 [place] [address] Care Team Providers Care Equipment Cleaner Name Role Phone Minna Whipple MD Primary Care Provider [phone] Zahira Grant MD Primary Care Provider [phone] Encounter Details Date Type Department Care Team ([facility] st Contact Info) Description 09/03/2022 Orders Only [facility] MED & PEDS [address] [place], [place] [phone] Zahira Grant MD [address] [place], [place] [phone] Polyarthralgia (Primary Dx) Social History Tobacco Use [...] sites documented in this encounter Care Teams Equipment Cleaner Relationship Specialty Start Date End Date Minna Whipple MD [address] [place], [place] [phone] PCP - General Internal Medicine 06/09/18 05/31/25 Zahira Grant MD [address] [place] [address] PCP - General Family Medicine 06/01/25 Lauren Srivastava NP Nurse Practitioner Psychiatry 09/08/20 documented as of this encounter
--- OUTSIDE RECORDS SUMMARY | 2025-06-01 13:23 | XMS_ITS | Encounter Summary ---
Author Organization [employer] Address [address] [facility] 7 [place] [address] Care Team Providers Care Photoradio Operator Name Role Phone Minna Whipple MD Primary Care Provider [phone] Zahira Grant MD Primary Care Provider [phone] Reason for Visit * Reason Onset Date Comments PT-1 03/01/2025 Encounter Details Date Type Department Care Team ([facility] st Contact Info) Description 03/01/2025 Telephone [facility] MEDICINE [address] [place] [address] Minna Whipple MD [address] [place] [address] PT-1 Social History Tobacco Use Types Packs/Day [...] Y/N: Yes Provider name or facility name: [facility] Facility Address: [address] [place] [address] Escort needed: Y/N: No Do you have [...] documented as of this encounter Care Teams Photoradio Operator Relationship Specialty Start Date End Date Minna Whipple MD [address] [place] [address] PCP - General Internal Medicine 06/09/18 05/31/25 Zahira Grant MD [address] [place] [address] PCP - General Family Medicine 06/01/25 Lauren Srivastava NP Nurse Practitioner Psychiatry 09/08/20 documented as of this encounter
--- OUTSIDE RECORDS SUMMARY | 2025-06-01 13:23 | XMS_ITS | Encounter Summary ---
Author Organization [employer] [facility] Address [address] [place] [address] 7 [place] [address] Care Team Providers Care Director Of Advertising Sales Name Role Phone Minna Whipple MD Primary Care Provider [phone] Zahira Grant MD Primary Care Provider [phone] Encounter Details Date Type Department Care Team ([facility] st Contact Info) Description 10/23/2023 Telephone [facility] MEDICINE [address] [place], [place] [phone] Minna Whipple MD [address] [place], [place] [phone] Social History Tobacco Use Types Packs/Day Years [...] on filedocumented in this encounter Care Teams Director Of Advertising Sales Relationship Specialty Start Date End Date Minna Whipple MD [address] [place], [place] [phone] PCP - General Internal Medicine 06/09/18 05/31/25 Zahira Grant MD [address] [place], [place] [phone] PCP - General Family Medicine 06/01/25 Lauren Srivastava NP Nurse Practitioner Psychiatry 09/08/20 documented as of this encounter
--- OUTSIDE RECORDS SUMMARY | 2025-06-01 13:23 | XMS_ITS | Clinical Summary ---
Author Organization [facility] Address [address] [facility] [address] [place] [address] Phone Care Team Providers Care Legal Support Manager Name Role Phone Katt Sandoval MD Primary Care Provider [phone] Allergies No known active allergies Medications ARIPiprazole [...] topic Medical Devices Not on file Insurance [facility] C3 ACO C3 ACO C3 ACO Care Teams Legal Support Manager Relationship Specialty Start Date End Date Katt Sandoval MD [address] [place] [phone] PCP - General Internal Medicine 12/16/23 Additional Source Comments The information contained in this document represents components of the legal health record. It is not the complete legal health record.[facility]
[2025-06-01 14:33] LABS: MANUAL DIFF FLAG NO
[2025-06-01 14:39] LABS: Hematocrit 32.7 % (37.0-47.0); Hemoglobin 11.0 g/dl (12.0-16.0); Imm Gran Abs Auto 0.00 X10*3/uL (0.00-0.03); Imm Gran Pct Auto 0.0 % (0.0-0.4); Lymphocytes Absolute Auto 1.3 X10*3/uL (1.2-4.9); Mean Corpuscular HGB Conc 33.6 g/dl (31.0-35.0); Mean Corpuscular Hemoglobin 32.1 pg (27.0-33.0); Mean Corpuscular Volume 95.3 fL (80.0-98.0); NRBC Abs Auto 0.000 X10*3/uL (0.0-0.012); NRBC Pct Auto 0.0 /100WBC (0.0-0.2); Platelet Count 200 X10*3/uL (160-400); Red Blood Count 3.43 X10*6/uL (4.20-5.50); White Blood Count 4.3 X10*3/uL (4.8-10.8)
[2025-06-01 15:24] LABS: Alanine Aminotransferase 16 U/L (0-31); Albumin Level 4.0 g/dL (3.5-5.0); Alkaline Phosphatase 44 U/L (39-117); Anion Gap 8 (12-20); Aspartate Amino Transferase 27 U/L (5-31); Blood Urea Nitrogen 9 mg/dL (9-16); Calcium 8.5 mg/dL (8.4-10.2); Carbon Dioxide 28 mmol/L (22-29); Chloride 107 mmol/L (96-108); Cholesterol 185 mg/dL (<200); Estimated Glomerular Filt Rate > 60; HDL Cholesterol 40 mg/dL (>40); Potassium 3.8 mmol/L (3.3-5.1); Sodium 139 mmol/L (135-145); Total Protein 7.3 g/dL (6.5-8.0); Triglycerides 85 mg/dL (<150)
[2025-06-02 04:16] LABS: HBS Num1 > 1000.00 mIU/mL (0-7.99); HBc Num1 0.11 S/CO (0.00-0.79); HBsAGNum1 0.30 S/CO (0.00-0.99); HIV Num 1 0.05 S/CO (0.00-0.99); Hepatitis B Surface Antigen Negative (Negative); ~HepC Num1 0.06 S/CO (0.00-0.79); ~Hepatitis B Surface Antibody REACTIVE (Nonreactive); ~Hepatitis C Antibody Nonreactive (Nonreactive)
== END 2025-06-01 10:42 | disposition home or self-care (01) ==
LOC: HO.CHCLDS 10:41
PROVIDERS: Visit Provider Family Medicine
DX: Z11.59 Encounter for screening for other viral diseases (principal); Z11.4 Encounter for screening for human immunodeficiency virus [HIV]; Z13.89 Encounter for screening for other disorder; E66.3 Overweight; E55.9 Vitamin D deficiency, unspecified
CPT/HCPCS: 36415; 80053; 80061; 82306; 84443; 85025; 86704; 86706; 86803; 87340; 87389

== ENCOUNTER 2025-07-11 09:57 | Outpatient (REF) | payer MEDICAID, SELFPAY ==
--- OUTSIDE RECORDS SUMMARY | 2025-07-06 22:59 | XMS_ITS | Continuity of Care Document ---
Author Organization [facility] Tristan sudarshan Address [address] [place] [address] [address] [place] [address]- Care Team Providers Care Blanket Binder Name Role Phone Sole BARNES, Minna Primary Care Physician [phone] [id number] Date(s): 06/29/25 - 07/06/25 [facility] [address] [place] [id number] Attending Physician: Alex BARNES, Lance Davis Encounter Type: Office Visit Allergies, Adverse Reactions, Alerts No Known Allergies Functional Status Functional Status Assessment Assessment Assessment Component Result Effecti ve Date Disability status [CUBS] I'm Thriving - no identified disability 06/29/25 Because of a physica l, mental, or emotional condition, do you have serious difficulty concentrating, remembering, or making decisions Unknown 06/29/25 Difficulty Reading O r Writing Unknown 06/29/25 Difficulty communica ting in usual language Unknown 06/29/25 Are you blind, or do you have serious difficulty seeing, even when wearing glasses Unknown 06/29/25 Because of a physica l, mental, or emotional condition, do you have difficulty doing errands alone such as visiting a physician's office or shopping Unknown 06/29/25 Are you deaf, or do you have serious difficulty hearing Unknown 06/29/25 Do you have difficul ty dressing or bathing Unknown 06/29/25 Do you have serious difficulty walking or climbing stairs Unknown 06/29/25 Do you need any nusrat tional assistance or accommodations during your visit Unknown 06/29/25 Medications ARIPiprazole 15 mg oral tablet 30 each, 0 Refill(s), TOME 1 TABLETA POR V A ORAL TODOS LOS D , Refills 0, 06/29/25 9:24:00 AM EDT, Partial fill upon patient request if the prescription is for a schedule II opioid drug. Start Date: 06/29/25 Status: Ordered Medication Dispense Status: Completed Total Allowed Fills: 1 Fills Dispensed: 0 ergocalciferol 77719 iu oral capsule 12 each, 0 Refill(s), TOME 1 C PSULA POR V A ORAL ONE TIME PER WEEK, Refills 0, 06/29/25 9:24:00 AMEDT, Partial fill upon patient request if the prescription is for a schedule II opioid drug. Start Date: 06/29/25 Status: Ordered Medication Dispense Status: Completed Total Allowed Fills: 1 Fills Dispensed: 0 Lidocaine Topical, 3 Refill(s), Apply topically if needed in the morning and at bedtime for moderate pain (keloid)., 0 Refills, 03/30/25 8:00:00 PM EDT, Partial fill upon patient request if the prescription is for a schedule II opioid drug. Start Date: 03/30/25 Status: Ordered Medication Dispense Status: Completed Total Allowed Fills: 1 Fills Dispensed: 0 propranolol 10 mg oral tablet 90 each, 0 Refill(s), TOME 1 TABLETA POR V A ORAL ANNIA VECES AL D A CUANDO SEA NECESARIO, Refills 0, 06/29/25 9:24:00 AM EDT, Partial fill upon patient request if the prescription is for a schedule II opioid drug. Start Date: 06/29/25 Status: Ordered Medication Dispense Status: Completed Total Allowed Fills: 1 Fills Dispensed: 0 traZODone 50 mg oral tablet 60 each, 0 Refill(s), TAKE ONE TO TWO (2) TABLETS BY MOUTH AT BEDTIME, NEEDED FOR SLEEP, Refills0, 06/29/25 9:24:00 AM EDT, Partial fill upon patient request if the prescription is for a scheduleII opioid drug. Start Date: 06/29/25 Status: Ordered Medication Dispense Status: Completed Total Allowed Fills: 1 Fills Dispensed: 0 Social History Social History Type Response Sex Female Sex Representation Female (finding) Patient Care team information Care Team Personnel Name: Minna Whipple MD Position: [facility] Outreach Member Role: PCP Address: [address] [place] [phone]- Telecom: Care Team Related Persons Name: KYAWMELANIE Insurance Providers Guarantor name: LEON CARD [facility] Plan Information #: 1 Payer: [employer] Payer Identifier: [employer] Member Number: [id number] Group Number: [id number] Subscriber Identifier: [id number] Relationship to Subscriber: self Coverage Type: MEDICAID Coverage Verification Date: NA Telecom: [employer] Address:
--- NOTE | ~2025-07-11 | XR_ITS ---
EXAMINATION: XR KNEE, LEFT CLINICAL INFORMATION: pain COMPARISON: None available. TECHNIQUE: Three views of the left knee. FINDINGS: There is mild narrowing of the medial joint space. There is no joint effusion. There are lateral patellofemoral joint space marginal osteophytes. XR/XR knee LT 3V IMPRESSION: Mild degenerative changes Electronically signed by: Chet Walter MD 07/11/2025 10:39 AM EST
--- NOTE | ~2025-07-11 | XR_ITS ---
EXAMINATION: XR CERVICAL SPINE CLINICAL INFORMATION: pain COMPARISON: None available. TECHNIQUE: AP lateral and atlantoodontoid views. FINDINGS: Craniocervical junction is intact. No acute cortical disruption or gross malalignment. No lytic or blastic lesions loss of the physiologic cervical lordosis. Small marginal osteophyte formation C3-4, C4-5 and C5-6 levels. Upper airways patent. XR/XR cervical spine 3V IMPRESSION: Mild multilevel cervical spondylosis without acute fracture or trauma-related listhesis. EXAMINATION: XR THORACIC SPINE CLINICAL INFORMATION: pain COMPARISON: None available. TECHNIQUE: AP and lateral views FINDINGS: No acute cortical disruption or malalignment. Mild a shaped curvature of the upper thoracic spine. No lytic or blastic lesions. Small marginal osteophyte formation and endplate sclerosis. IMPRESSION: Mild multilevel spondylosis and mild scoliosis EXAMINATION: XR LUMBOSACRAL SPINE CLINICAL INFORMATION: pain COMPARISON: None available. TECHNIQUE: AP and lateral views. FINDINGS: Mild S-shaped curvature of the lumbar spine. Small marginal osteophyte formation at multiple levels and mild endplate sclerosis. No acute cortical disruption or malalignment. No lytic or blastic lesions. IMPRESSION: Mild multilevel spondylosis and mild scoliosis without acute fracture or listhesis. Electronically signed by: iWllem Johansen MD 07/11/2025 10:39 AM EDIN
--- NOTE | ~2025-07-11 | XR_ITS ---
EXAMINATION: XR CERVICAL SPINE CLINICAL INFORMATION: pain COMPARISON: None available. TECHNIQUE: AP lateral and atlantoodontoid views. FINDINGS: Craniocervical junction is intact. No acute cortical disruption or gross malalignment. No lytic or blastic lesions loss of the physiologic cervical lordosis. Small marginal osteophyte formation C3-4, C4-5 and C5-6 levels. Upper airways patent. XR/XR thoracic spine 2V IMPRESSION: Mild multilevel cervical spondylosis without acute fracture or trauma-related listhesis. EXAMINATION: XR THORACIC SPINE CLINICAL INFORMATION: pain COMPARISON: None available. TECHNIQUE: AP and lateral views FINDINGS: No acute cortical disruption or malalignment. Mild a shaped curvature of the upper thoracic spine. No lytic or blastic lesions. Small marginal osteophyte formation and endplate sclerosis. IMPRESSION: Mild multilevel spondylosis and mild scoliosis EXAMINATION: XR LUMBOSACRAL SPINE CLINICAL INFORMATION: pain COMPARISON: None available. TECHNIQUE: AP and lateral views. FINDINGS: Mild S-shaped curvature of the lumbar spine. Small marginal osteophyte formation at multiple levels and mild endplate sclerosis. No acute cortical disruption or malalignment. No lytic or blastic lesions. IMPRESSION: Mild multilevel spondylosis and mild scoliosis without acute fracture or listhesis. Electronically signed by: Willem Johansen MD 07/11/2025 10:39 AM EDIN
--- NOTE | ~2025-07-11 | XR_ITS ---
EXAMINATION: XR CERVICAL SPINE CLINICAL INFORMATION: pain COMPARISON: None available. TECHNIQUE: AP lateral and atlantoodontoid views. FINDINGS: Craniocervical junction is intact. No acute cortical disruption or gross malalignment. No lytic or blastic lesions loss of the physiologic cervical lordosis. Small marginal osteophyte formation C3-4, C4-5 and C5-6 levels. Upper airways patent. XR/XR lumbar spine 2-3V IMPRESSION: Mild multilevel cervical spondylosis without acute fracture or trauma-related listhesis. EXAMINATION: XR THORACIC SPINE CLINICAL INFORMATION: pain COMPARISON: None available. TECHNIQUE: AP and lateral views FINDINGS: No acute cortical disruption or malalignment. Mild a shaped curvature of the upper thoracic spine. No lytic or blastic lesions. Small marginal osteophyte formation and endplate sclerosis. IMPRESSION: Mild multilevel spondylosis and mild scoliosis EXAMINATION: XR LUMBOSACRAL SPINE CLINICAL INFORMATION: pain COMPARISON: None available. TECHNIQUE: AP and lateral views. FINDINGS: Mild S-shaped curvature of the lumbar spine. Small marginal osteophyte formation at multiple levels and mild endplate sclerosis. No acute cortical disruption or malalignment. No lytic or blastic lesions. IMPRESSION: Mild multilevel spondylosis and mild scoliosis without acute fracture or listhesis. Electronically signed by: Willem Johansen MD 07/11/2025 10:39 AM EDIN
--- OUTSIDE RECORDS SUMMARY | 2025-07-11 11:47 | XMS_ITS | Clinical Summary ---
Author Organization [employer] Address [address] [place] [address] [address] [place] [address] Care Team Providers Care Masking Machine Feeder Name Role Phone Zahira Grant MD Primary Care Provider [phone] Allergies No known active allergies Medications capsicum (Zostrix) 0.075 % topical cream Apply topically every 8 (eight) hours. 2 Active propranolol (Inderal) 10 MG tablet TAKE ONE (1) TABLET BY MOUTH TWICE A DAY, NEEDED FOR ANXIETY 2 Active escitalopram (Lexapro) 10 MG tablet Take 10 mg by mouth in the morning. 2 Active melatonin 3 MG tablet TAKE ONE TO TWO (1-2) TABLETS BY MOUTH AT BEDTIME, NEEDED 2 Active traZODone (Desyrel) 50 MG tablet TAKE 1-2 TABLETS BY MOUTH AT BEDTIME NEEDED FOR SLEEP 4 Active ergocalciferol (Vitamin D2) 1.25 MG (13793 UT) capsule TOME 1 CAPSULA POR VIA ORAL ONE TIME PER WEEK 13 capsule 1 5 Active Diclofenac Sodium 1 % gel APPLY 2 GRAMS TOPICALLY 3 TIMES DAILY. 100 g 1 5 Active diclofenac (Cataflam) 50 MG tablet TAKE 1 TABLET BY MOUTH 3 TIMES A DAY NEEDED 60 tablet 5 Active clobetasol (Temovate) 0.05 % ointmentIndicat ions:Third degree burn due to scalding Apply topically 2 times daily. 90 g 1 5 Active alpha tocopherol (Vitamin E) 400 units capsule Take 1 capsule (400 Units) by mouth Once per day. Scar massage 30 capsule 11 5 03/31/20 26 Active ARIPiprazole (Abilify) 10 MG tablet TOME 1 TABLETA POR V A ORAL TODOS LOS D 5 Active biotin 10 MG capsule Take by mouth. Activ e ergocalciferol (Vitamin D2) 1.25 MG (45135 UT) capsuleIndicati ons:Vitamin D deficiency Take 1 capsule (1.25 mg) by mouth 1 (one) time per week. 8 capsule 5 Active cholecalciferol VITAMIN D (Vitamin D-3) 50 MCG (2000 UT) tabletIndicatio ns:Vitamin D deficiency Take 1 tablet (50 mcg) by mouth Once per day. 120 tablet 3 5 Active ferrous gluconate (Fergon) 324 (38 Fe) MG tablet Take 1 tablet (324 mg) by mouth with breakfast. 90 tablet 1 5 Active Active Problems Problem Noted Date Diagnosed [...] daily - refer to plastic surgeon at [facility] if they would offer any type [...] Encounters Date Type Department Care Team Description 07/09/2025 Refill [facility] [address] [place] [address] Minna Whipple MD 07/07/2025 Patient Outreach [address] [address] Zahira Grant MD Care Coordination ([facility] outreach for SDOH PT-1 and food needs-referral completed /) 07/07/2025 Telephone [facility] [address] [place] [phone] Zahira Grant MD pt1 07/01/2025 Patient Outreach [address] [phone] Zahira Grant MD Care Coordination ([facility] outreach for SDOH PT-1 and food needs-referral completed /) 07/01/[address] [phone] Zahira Grant MD 06/06/[address] [address] Sander Aguirre Viktoriya Appointment 06/03/2025 Telephone [facility] [address] [place] [address] Zahira Grant MD 06/03/2025 Results Follow-Up [facility] [address], [place] [phone] Zahira Grant MD CBC auto differential, Comprehensive Metabolic Panel, TSH W/Reflex to FT4, Additional followed-up results: 7 06/01/2025 9:15 AM EDT Office Visit [facility] [address] [place] [address] Zahira Grant MD History of uterine fibroid (Primary Dx); Abnormal uterine bleeding; Vitamin D deficiency; Breast cancer screening by mammogram; Encounter for immunization; Overweight; Encounter for health-related screening; Sleep apnea, unspecified type; Spasm of paraspinal muscle; Chronic pain of left knee 06/01/2025 Travel 05/25/2025 Patient Outreach [facility] [address] [place] [phone] Minna Whipple MD Care Coordination ([facility] outreach for SDOH food needs-referral completed /) 05/25/2025 Patient Outreach [facility] [address] [place] [phone] Minna Whipple MD Pre-visit Planning (SDOH screening negative and Tobacco screening negative) 04/10/2025 Refill [facility] [address] [place] [address] Elizabeth Carney FNP from Last 3 Months Immunizations Immunization Administration Dates Next Due Influenza injectable quadriv alent IIV4 with preservative 07/05/2019 Influenza injectable quadrivalent preservative f ree 05/31/2021 Influenza, Injectable, MDCK, preservative free 1 10/14/2023 Influenza, seasonal, injectable, preservative fr ee 06/01/2025 Tdap 06/01/2025 Family History Medical History Relation Name Comments Breast cancer Father's Sister Cancer Maternal Grandmother Radhika Tate Diabetes Maternal Grandmother Radhikajona Tate Cancer Mother Jaci Acuna Depression Mother [...] Health Maintenance Due Date Last Done Comments Alcohol/Substance Use Screening 1997 HPV Vaccines (1 - 3-dose series) 02/17/2000 Hepatitis B Vaccines (1 of 3 - 19+ 3-dose series) 02/17/2004 Depression Monitoring 06/16/2024 12/16/2023, 024 Mammogram 2025 06/17/2018, 06/17/2018 COVID-19 Vaccine ( - season) 2025 Disability Screening 01/21/2026 01/21/2025 Family Planning (PISQ) 03/03/2026 03/03/2025 SDOH Screening 06/01/2026 06/01/2025 Tobacco Screening 06/01/2026 06/01/2025 Cervical Cancer Screening 06/07/2029 HPV/Cotest 06/07/2029 06/07/2024, 06/09/2018 Pap Smear 06/07/2029 06/07/2024 Zoster Vaccines (1 of 2) 2035 DTaP/Tdap/Td Vaccines (2 - Td or Tdap) 06/01/2035 06/01/2025 RSV Patients and Patients Aged 60 years or older (1 - 1-dose 75+ series) 02/17/2060 HIV Screening Completed 06/01/2025 Hepatitis C Screening Completed 06/01/2025 Influenza Vaccine Completed 06/01/2025, , 05/31/2021, Additional [...] Procedure Name Priority Date/Time Associated Diagnosis Comments XR KNEE 3 VIEWS LEFT Routine 07/11/2025 10:02 AM EST Chronic pain of left knee XR CERVICAL SPINE 3V Routine 07/11/2025 10:02 AM EST Spasm of paraspinal muscle XR THORACIC SPINE 2 VIEWS Routine 07/11/2025 10:02 AM EST Spasm of paraspinal muscle XR LUMBAR SPINE 2-3 VIEWS Routine 07/11/2025 10:01 AM EST Spasm of paraspinal muscle LIPID PANEL, STANDARD Routine 06/01/2025 10:45 AM EDT Overweight HEPATITIS B SURFACE ANTIGEN, EIA Routine 06/01/2025 10:45 AM EDT Encounter for health-related screening HEPATITIS B CORE AB TOTAL Routine 06/01/2025 10:45 AM EDT Encounter for health-related screening HEPATITIS B SURFACE ANTIBODY, QUALITATIVE Routine 06/01/2025 10:45 AM EDT Encounter for health-related screening HEPATITIS C AB W/REFL TO HCV RNA, QN, PCR Routine 06/01/2025 10:45 AM EDT Encounter for health-related screening HIV 1/2 ANTIGEN/ANTIBODY, FOURTH GENERATION W/RFL Routine 06/01/2025 10:45 AM EDT Encounter for health-related screening VITAMIN D,25-OH,TOTAL,IA Routine 06/01/2025 10:45 AM EDT Vitamin D deficiency TSH W/REFLEX TO FT4 Routine 06/01/2025 1 0:45 AM EDT Overweight COMPREHENSIVE METABOLIC PANEL Routine 06/01/2025 10:45 AM EDT Overweight CBC WITH AUTO DIFFERENTIAL Routine 06/01/2025 10:45 AM EDT Overweight THINPREP IMAGING PAP AND HPV MRNA E6/E7 Routine 06/07/2024 11:04 AM EDT HM MAMMOGRAPHY Routine 06/17/2018 from Last 3 Months or Most Recently Relevant to Health Maintenance Results * XR CERVICAL SPINE 3V (07/11/2025 10:02 AM EST) Anatomical Region Laterality Modality Abdomen Radiographic Haydee ging 07/11/2025 10:0 2 AM EST Narrative 07/11/2025 10:41 AM EST [place] [address] XRay Report Signed Patient: Lidia Dey MR#: [id number] 48 : 1985 Acct:[id number] Age/Sex: 40 / F ADM Date: 07/11/25 Loc: BARAK Attending Dr: Zahira Grant MD Ordering Physician: Zahira Grant MD Date of Service: 07/11/25 Procedure(s): XR cervical spine 3V Accession Number(s): [id number] cc: Zahira Grant MD Reason for Exam: pain EXAMINATION: XR CERVICAL SPINE CLINICAL INFORMATION: pain COMPARISON: None available. TECHNIQUE: AP lateral and atlantoodontoid views. FINDINGS: Craniocervical junction is intact. No acute cortical disruption or gross malalignment. No lytic or blastic lesions loss of the physiologic cervical lordosis. Small marginal osteophyte formation C3-4, C4-5 and C5-6 levels. Upper airways patent. XR/XR cervical spine 3V IMPRESSION: Mild multilevel cervical spondylosis without acute fracture or trauma-related listhesis. EXAMINATION: XR THORACIC SPINE CLINICAL INFORMATION: pain COMPARISON: None available. TECHNIQUE: AP and lateral views FINDINGS: No acute cortical disruption or malalignment. Mild a shaped curvature of the upper thoracic spine. No lytic or blastic lesions. Small marginal osteophyte formation and endplate sclerosis. IMPRESSION: Mild multilevel spondylosis and mild scoliosis EXAMINATION: XR LUMBOSACRAL SPINE CLINICAL INFORMATION: pain COMPARISON: None available. TECHNIQUE: AP and lateral views. FINDINGS: Mild S-shaped curvature of the lumbar spine. Small marginal osteophyte formation at multiple levels and mild endplate sclerosis. No acute cortical disruption or malalignment. No lytic or blastic lesions. IMPRESSION: Mild multilevel spondylosis and mild scoliosis without acute fracture or listhesis. Electronically signed by: Willem Johansen MD 07/11/2025 10:39 AM EST Dictated By: Willem Salinas MD Signed By: <Electronically signed by Willem Quintero MD in OV> 07/11/25 1039 DD/ 1002 TD/TT: 07/11/25 1033 [employer] Assembler: Procedure Note Donotuseinterpreter, Image - 07/11/2025 [place] [address] XRay Report Signed Patient: Sandra Dey#: [id number] 48 : 1985Acct:[id number] Age/Sex: 40 / FADM Date: 07/11/25 Loc: HO.ANDREINA Attending Dr: Zahira Grant MD Ordering Physician: Zahira Grant MD Date of Service: 07/11/25 Procedure(s): XR cervical spine 3V Accession Number(s): [id number] cc: Zahira Grant MD Reason for Exam: pain EXAMINATION: XR CERVICAL SPINE CLINICAL INFORMATION: pain COMPARISON: None available. TECHNIQUE: AP lateral and atlantoodontoid views. FINDINGS: Craniocervical junction is intact. No acute cortical disruption or gross malalignment. No lytic or blastic lesions loss of the physiologic cervical lordosis. Small marginal osteophyte formation C3-4, C4-5 and C5-6 levels. Upper airways patent. XR/XR cervical spine 3V IMPRESSION: Mild multilevel cervical spondylosis without acute fracture or trauma-related listhesis. EXAMINATION: XR THORACIC SPINE CLINICAL INFORMATION: pain COMPARISON: None available. TECHNIQUE: AP and lateral views FINDINGS: No acute cortical disruption or malalignment. Mild a shaped curvature of the upper thoracic spine. No lytic or blastic lesions. Small marginal osteophyte formation and endplate sclerosis. IMPRESSION: Mild multilevel spondylosis and mild scoliosis EXAMINATION: XR LUMBOSACRAL SPINE CLINICAL INFORMATION: pain COMPARISON: None available. TECHNIQUE: AP and lateral views. FINDINGS: Mild S-shaped curvature of the lumbar spine. Small marginal osteophyte formation at multiple levels and mild endplate sclerosis. No acute cortical disruption or malalignment. No lytic or blastic lesions. IMPRESSION: Mild multilevel spondylosis and mild scoliosis without acute fracture or listhesis. Electronically signed by: Willem Johansen MD 07/11/2025 10:39 AM EST Dictated By: Willem Salinas MD Signed By: <Electronically signed by Willem Quintero MDin OV> 07/11/25 1039 DD/ 1002 TD/TT: 07/11/25 1033 [employer] Hull Assembler: us Zahira Grant MD IMG XR PROCEDURES Edited Resu lt - Final * XR Knee 3 Views Left (07/11/2025 10:02 AM EST) Anatomical Region Laterality Modality Lower Extremities, Knee Left Radiogra phic Imaging 07/11/2025 10:0 2 AM EST Narrative 07/11/2025 10:42 AM EST [address] [address] XRay Report Signed Patient: Lidia Dey MR#: [id number] 48 : 1985 Acct:[id number] Age/Sex: 40 / F ADM Date: 07/11/25 Loc: BARAK Attending Dr: Zahira Grant MD Ordering Physician: Zahira Grant MD Date of Service: 07/11/25 Procedure(s): XR knee LT 3V Accession Number(s): [id number] cc: Zahira Grant MD Reason for Exam: pain EXAMINATION: XR KNEE, LEFT CLINICAL INFORMATION: pain COMPARISON: None available. TECHNIQUE: Three views of the left knee. FINDINGS: There is mild narrowing of the medial joint space. There is no joint effusion. There are lateral patellofemoral joint space marginal osteophytes. XR/XR knee LT 3V IMPRESSION: Mild degenerative changes Electronically signed by: Chet Walter MD 07/11/2025 10:39 AM EST Dictated By: Chet Walter MD Signed By: <Electronically signed by Chet Walter MD in OV> 07/11/25 1039 DD/ 1002 TD/TT: 07/11/25 1033 [employer] Assembler: Procedure Note Donotuseinterpreter, Image - 07/11/2025 [place] [address] XRay Report Signed Patient: Sandra Dey#: [id number] 48 : 1985Acct:[id number] Age/Sex: 40 / FADM Date: 07/11/25 Loc: BARAK Attending Dr: Zahira Grant MD Ordering Physician: Zahira Grant MD Date of Service: 07/11/25 Procedure(s): XR knee LT 3V Accession Number(s): [id number] cc: Zahira Grant MD Reason for Exam: pain EXAMINATION: XR KNEE, LEFT CLINICAL INFORMATION: pain COMPARISON: None available. TECHNIQUE: Three views of the left knee. FINDINGS: There is mild narrowing of the medial joint space. There is no joint effusion. There are lateral patellofemoral joint space marginal osteophytes. XR/XR knee LT 3V IMPRESSION: Mild degenerative changes Electronically signed by: Chet Walter MD 07/11/2025 10:39 AM EST RP Dictated By: Chet Walter MD Signed By: <Electronically signed by Chet Walter MD in OV> 07/11/25 1039 DD/ 1002 TD/TT: 07/11/25 1033 [employer] Assembler: us Zahira Grant MD IMG XR PROCEDURES Edited Resu lt - Final * XR Thoracic Spine 2 Views (07/11/2025 10:02 AM EST) Anatomical Region Laterality Modality Spine, T-spine Radiographic Haydee ging 07/11/2025 10:0 2 AM EST Narrative 07/11/2025 10:41 AM EST [address] [address] XRay Report Signed Patient: Lidia Dey MR#: [id number] 48 : 1985 Acct:[id number] Age/Sex: 40 / F ADM Date: 07/11/25 Loc: HO.XRAY Attending Dr: Zahira Grant MD Ordering Physician: Zahira Grant MD Date of Service: 07/11/25 Procedure(s): XR thoracic spine 2V Accession Number(s): [id number] cc: Zahira Grant MD Reason for Exam: pain EXAMINATION: XR CERVICAL SPINE CLINICAL INFORMATION: pain COMPARISON: None available. TECHNIQUE: AP lateral and atlantoodontoid views. FINDINGS: Craniocervical junction is intact. No acute cortical disruption or gross malalignment. No lytic or blastic lesions loss of the physiologic cervical lordosis. Small marginal osteophyte formation C3-4, C4-5 and C5-6 levels. Upper airways patent. XR/XR thoracic spine 2V IMPRESSION: Mild multilevel cervical spondylosis without acute fracture or trauma-related listhesis. EXAMINATION: XR THORACIC SPINE CLINICAL INFORMATION: pain COMPARISON: None available. TECHNIQUE: AP and lateral views FINDINGS: No acute cortical disruption or malalignment. Mild a shaped curvature of the upper thoracic spine. No lytic or blastic lesions. Small marginal osteophyte formation and endplate sclerosis. IMPRESSION: Mild multilevel spondylosis and mild scoliosis EXAMINATION: XR LUMBOSACRAL SPINE CLINICAL INFORMATION: pain COMPARISON: None available. TECHNIQUE: AP and lateral views. FINDINGS: Mild S-shaped curvature of the lumbar spine. Small marginal osteophyte formation at multiple levels and mild endplate sclerosis. No acute cortical disruption or malalignment. No lytic or blastic lesions. IMPRESSION: Mild multilevel spondylosis and mild scoliosis without acute fracture or listhesis. Electronically signed by: Willem Johansen MD 07/11/2025 10:39 AM EST Dictated By: Willem Salinas MD Signed By: <Electronically signed by Willem Quintero MD in OV> 07/11/25 1039 DD/ 1002 TD/TT: 07/11/25 1033 [employer] Assembler: Procedure Note Donotuseinterpreter, Image - 07/11/2025 [place] [address] XRay Report Signed Patient: Lidia Dey#: [id number] 48 : 1985Acct:[id number] Age/Sex: 40 / FADM Date: 07/11/25 Loc: HO.XRAY Attending Dr: Zahira Grant MD Ordering Physician: Zahira Grant MD Date of Service: 07/11/25 Procedure(s): XR thoracic spine 2V Accession Number(s): [id number] cc: Zahira Grant MD Reason for Exam: pain EXAMINATION: XR CERVICAL SPINE CLINICAL INFORMATION: pain COMPARISON: None available. TECHNIQUE: AP lateral and atlantoodontoid views. FINDINGS: Craniocervical junction is intact. No acute cortical disruption or gross malalignment. No lytic or blastic lesions loss of the physiologic cervical lordosis. Small marginal osteophyte formation C3-4, C4-5 and C5-6 levels. Upper airways patent. XR/XR thoracic spine 2V IMPRESSION: Mild multilevel cervical spondylosis without acute fracture or trauma-related listhesis. EXAMINATION: XR THORACIC SPINE CLINICAL INFORMATION: pain COMPARISON: None available. TECHNIQUE: AP and lateral views FINDINGS: No acute cortical disruption or malalignment. Mild a shaped curvature of the upper thoracic spine. No lytic or blastic lesions. Small marginal osteophyte formation and endplate sclerosis. IMPRESSION: Mild multilevel spondylosis and mild scoliosis EXAMINATION: XR LUMBOSACRAL SPINE CLINICAL INFORMATION: pain COMPARISON: None available. TECHNIQUE: AP and lateral views. FINDINGS: Mild S-shaped curvature of the lumbar spine. Small marginal osteophyte formation at multiple levels and mild endplate sclerosis. No acute cortical disruption or malalignment. No lytic or blastic lesions. IMPRESSION: Mild multilevel spondylosis and mild scoliosis without acute fracture or listhesis. Electronically signed by: Willem Johansen MD 07/11/2025 10:39 AM EST RP Dictated By: Willem Salinas MD Signed By: <Electronically signed by Willem Quintero MDin OV> 07/11/25 1039 DD/ 1002 TD/TT: 07/11/25 1033 [employer] Assembler: us Zahira Grant MD IMG XR PROCEDURES Edited Resu lt - Final * XR Lumbar Spine 2-3 Views (07/11/2025 10:01 AM EST) Anatomical Region Laterality Modality Spine, L-spine Radiographic Haydee ging 07/11/2025 10:0 1 AM EST Narrative 07/11/2025 10:41 AM EST [place] [address] XRay Report Signed Patient: Lidia Dey MR#: [id number] 48 : 1985 Acct:[id number] Age/Sex: 40 / F ADM Date: 07/11/25 Loc: HO.ANDREINA Attending Dr: Zahira Grant MD Ordering Physician: Zahira Grant MD Date of Service: 07/11/25 Procedure(s): XR lumbar spine 2-3V Accession Number(s): [id number] cc: Zahira Grant MD Reason for Exam: pain EXAMINATION: XR CERVICAL SPINE CLINICAL INFORMATION: pain COMPARISON: None available. TECHNIQUE: AP lateral and atlantoodontoid views. FINDINGS: Craniocervical junction is intact. No acute cortical disruption or gross malalignment. No lytic or blastic lesions loss of the physiologic cervical lordosis. Small marginal osteophyte formation C3-4, C4-5 and C5-6 levels. Upper airways patent. XR/XR lumbar spine 2-3V IMPRESSION: Mild multilevel cervical spondylosis without acute fracture or trauma-related listhesis. EXAMINATION: XR THORACIC SPINE CLINICAL INFORMATION: pain COMPARISON: None available. TECHNIQUE: AP and lateral views FINDINGS: No acute cortical disruption or malalignment. Mild a shaped curvature of the upper thoracic spine. No lytic or blastic lesions. Small marginal osteophyte formation and endplate sclerosis. IMPRESSION: Mild multilevel spondylosis and mild scoliosis EXAMINATION: XR LUMBOSACRAL SPINE CLINICAL INFORMATION: pain COMPARISON: None available. TECHNIQUE: AP and lateral views. FINDINGS: Mild S-shaped curvature of the lumbar spine. Small marginal osteophyte formation at multiple levels and mild endplate sclerosis. No acute cortical disruption or malalignment. No lytic or blastic lesions. IMPRESSION: Mild multilevel spondylosis and mild scoliosis without acute fracture or listhesis. Electronically signed by: Willem Johansen MD 07/11/2025 10:39 AM EST Dictated By: Willem Salinas MD Signed By: <Electronically signed by Willem Quintero MD in OV> 07/11/25 1039 DD/ 1001 TD/TT: 07/11/25 1033 [employer] Assembler: Procedure Note Donotuseinterpreter, Image - 07/11/2025 [place] [address] XRay Report Signed Patient: Sandra Dey#: [id number] 48 : 1985Acct:[id number] Age/Sex: 40 / FADM Date: 07/11/25 Loc: BARAK Attending Dr: Zahira Grant MD Ordering Physician: Zahira Grant MD Date of Service: 07/11/25 Procedure(s): XR lumbar spine 2-3V Accession Number(s): [id number] cc: Zahira Grant MD Reason for Exam: pain EXAMINATION: XR CERVICAL SPINE CLINICAL INFORMATION: pain COMPARISON: None available. TECHNIQUE: AP lateral and atlantoodontoid views. FINDINGS: Craniocervical junction is intact. No acute cortical disruption or gross malalignment. No lytic or blastic lesions loss of the physiologic cervical lordosis. Small marginal osteophyte formation C3-4, C4-5 and C5-6 levels. Upper airways patent. XR/XR lumbar spine 2-3V IMPRESSION: Mild multilevel cervical spondylosis without acute fracture or trauma-related listhesis. EXAMINATION: XR THORACIC SPINE CLINICAL INFORMATION: pain COMPARISON: None available. TECHNIQUE: AP and lateral views FINDINGS: No acute cortical disruption or malalignment. Mild a shaped curvature of the upper thoracic spine. No lytic or blastic lesions. Small marginal osteophyte formation and endplate sclerosis. IMPRESSION: Mild multilevel spondylosis and mild scoliosis EXAMINATION: XR LUMBOSACRAL SPINE CLINICAL INFORMATION: pain COMPARISON: None available. TECHNIQUE: AP and lateral views. FINDINGS: Mild S-shaped curvature of the lumbar spine. Small marginal osteophyte formation at multiple levels and mild endplate sclerosis. No acute cortical disruption or malalignment. No lytic or blastic lesions. IMPRESSION: Mild multilevel spondylosis and mild scoliosis without acute fracture or listhesis. Electronically signed by: Willem Johansen MD 07/11/2025 10:39 AM EST Dictated By: Willem Salinas MD Signed By: <Electronically signed by Willem Quintero MDin OV> 07/11/25 1039 DD/ 1001 TD/TT: 07/11/25 1033 [employer] Assembler: us Zahira Grant MD IMG XR PROCEDURES Edited Resu lt - Final * (ABNORMAL) Vitamin D, 25-Hydroxy, Total, Immunoassay (06/01/2025 10:45 AM EDT) Vitamin D 25-OH Total 12.3(L) >30 ng/mL [facility] Comment: Health Based Reference Values*< 20 ng/mL Rluiizryl69-55 ng/mL Insufficient> 30 ng/mL Sufficient*Daniele LEAL. N Engl J Med. 2007;357:266-280There is no well-established upper level of normal vitamin Dlevels. Some laboratories use 50 ng/mL as an upper limit ofnormal. However, toxicity is patient-dependent and may occurat any level. Careful correlation with the patient'spresentation is necessary and, if there is concern forvitamin D toxicity, treatment should be consideredirrespective of the serum level.Care must be taken in interpreting Vitamin D results fromdifferent laboratories and methodologies. Published datademonstrated that results from patients undergoinghemodialysis may show a negative bias when tested withvarious automated 25-OH vitamin D assays when compared toLC-MS/MS.When testing samples from patients whose predominant form ofVitamin D is Vitamin D2, such as patients receiving VitaminD2 supplementation, results that are subtherapeutic shouldbe confirmed with another method such as LC-MS/MS. Blood Venous blood specimen / Unknown 06/01/2025 10:45 AM EDT 06/01/2025 2:35 PM EDT Zahira Grant MD LAB BLOOD ORDERABLES Final Re sult Performing Organization Address [facility]/ZIP Co de Phone Number [facility] [address] [place] [phone] * TSH W/Reflex to FT4 (06/01/2025 10:45 AM EDT) TSH reflex Free T4 0.96 0.32 - 4.0 uIU/mL [facility] Blood Venous blood specimen / Unknown 06/01/2025 10:45 AM EDT 06/01/2025 2:35 PM EDT Zahira Grant MD LAB BLOOD ORDERABLES Final Re sult Performing Organization Address [facility] Co de Phone Number [facility] [address] [place] [phone] * (ABNORMAL) CBC auto differential (06/01/2025 10:45 AM EDT) White Blood Count 4.3(L) 4.8 - 10.8 X10*3/uL [facility] Red Blood Count 3.43(L) 4.20 - 5.50 X10*6/uL [facility] Hemoglobin 11.0(L) 12.0 - 16.0 g/dl [facility] Hematocrit 32.7(L) 37.0 - 47.0 % [facility] Mean Corpuscular Volume 95.3 80.0 - 98.0 fL [facility] Mean Corpuscular Hemoglobin 32.1 27.0 - 33.0 pg [facility] Mean Corpuscular HGB Conc 33.6 31.0 - 35.0 g/dl [facility] Red Cell Distribution Width 12.5 11.0 - 16.0 % [facility] Platelet Count 200 160 - 400 X10*3/uL [facility] Mean Platelet Volume 10.9 9.4 - 12.3 fL [facility] Neutrophils Percent Auto 61.0 45 - 73 % [facility] Imm Gran Pct Auto 0.0 0.0 - 0.4 % [facility] Lymphocytes Percent Auto 31.2 20 - 40 % [facility] Monocytes Percent Auto 6.6 2 - 11 % [facility] Eosinophils Percent Auto 0.7 0 - 4 % [facility] Basophils Percent Auto 0.5 0 - 2 % [facility] NRBC Pct Auto 0.0 0.0 - 0.2 /100WBC [facility] Neutrophils Absolute Auto 2.6 2.0 - 8.3 x10*3/uL [facility] Imm Gran Abs Auto 0.00 0.00 - 0.03 X10*3/uL [facility] Lymphocytes Absolute Auto 1.3 1.2 - 4.9 X10*3/uL [facility] Monocytes Absolute Auto 0.3 0.1 - 1.2 X10*3/uL [facility] Eosinophils Absolute Auto 0.0 0.0 - 0.4 X10*3/uL [facility] Basophils Absolute Auto 0.0 0.0 - 0.2 X10*3/uL [facility] NRBC Abs Auto 0.000 0.0 - 0.012 X10*3/uL [facility] Blood Venous blood specimen / Unknown 06/01/2025 10:45 AM EDT 06/01/2025 2:28 PM EDT Zahira Grant MD LAB BLOOD ORDERABLES Final Re sult Performing Organization Address City/[facility]/ZIP Co de Phone Number [facility] [address] [place] [phone] * Hepatitis C Antibody with Reflex to HCV, RNA, Quantitative, Real-Time PCR (06/01/2025 10:45 AM EDT) Hepatitis C Antibody Nonreactive Nonreactive [facility] Comment:Antibodies to HCV no t detected; does not exclude early acuteHCV infection. Blood Venous blood specimen / Unknown 06/01/2025 10:45 AM EDT 06/01/2025 2:35 PM EDT Zahira Grant MD LAB BLOOD ORDERABLES Final Re sult Performing Organization Address City/[facility]/ZIP Co de Phone Number [facility] [address] [place] [phone] * Hepatitis B surface antigen, EIA (06/01/2025 10:45 AM EDT) Hepatitis B Surface Ag Negative Negative [facility] Blood Venous blood specimen / Unknown 06/01/2025 10:45 AM EDT 06/01/2025 2:35 PM EDT Zahira Grant MD LAB BLOOD ORDERABLES Final Re sult Performing Organization Address City/[facility]/ZIP Co de Phone Number [facility] [address] [place] [phone] * Hepatitis B Core Antibody, Total (06/01/2025 10:45 AM EDT) Hepatitis B Core Antibody Nonreactive Nonreactive [facility] Blood Venous blood specimen / Unknown 06/01/2025 10:45 AM EDT 06/01/2025 2:35 PM EDT Zahira Grant MD LAB BLOOD ORDERABLES Final Re sult Performing Organization Address City/[facility]/ZIP Co de Phone Number [facility] [address] [place] [phone] * HIV-1/2 Antigen and Antibodies, Fourth Generation, with Reflexes (06/01/2025 10:45 AM EDT) HIV AB/AG Nonreactive Nonreactive [facility] Comment:HIV-1 p24 Ag and/or HIV-1/HIV-2 Ab not detected.A test result that is nonreactive does not exclude thepossibility of exposure to or infection with HIV-1 and/orHIV-2. Nonreactive results in this assay for individualswith prior exposure to HIV-1 and/or HIV-2 may be due toantigen and antibody levels that are below the limit ofdetection of this assay.The [employer] HIV Ag/Ab Combo assay result andsupplemental assay results should be interpreted inconjunction with the patient's clinical presentation,history and other laboratory results. If the results areinconsistent with clinical evidence, additional testing issuggested to confirm the result. Blood Venous blood specimen / Unknown 06/01/2025 10:45 AM EDT 06/01/2025 2:35 PM EDT us Zahira Grant MD LAB BLOOD ORDERABLES Final Re sult Performing Organization Address City/[facility]/ZIP Co de Phone Number [facility] [address] [place] [phone] * Hepatitis B Surface Antibody, Qualitative (06/01/2025 10:45 AM EDT) ~Hepatitis B Surface Antibody REACTIVE Nonreactive [facility] Comment:REACTIVE: > 11.99 mI U/mL Blood Venous blood specimen / Unknown 06/01/2025 10:45 AM EDT 06/01/2025 2:35 PM EDT us Zahira Grant MD LAB BLOOD ORDERABLES Final Re sult Performing Organization Address [facility] Co de Phone Number [facility] [address] [place] [phone] * (ABNORMAL) Lipid Panel, Standard (06/01/2025 10:45 AM EDT) Triglycerides 85 <150 mg/dL [facility] Comment:Desirable Triglyceri de: less than 150 mg/dLBorderline High Triglyceride 150-199 mg/dLHigh Triglyceride: 200-499 mg/dLVery High Triglyceride: greater than or equal to 5OO mg/dL Cholesterol 185 <200 mg/dL [facility] Comment:Desirable Cholestero l: less than 200 mg/dLBorderline High Cholesterol: 200-239 mg/dLHigh Cholesterol: greater than 239 mg/dL LDL Cholesterol Calculated 128(H) <100 mg/dL [facility] Comment:Desirable LDL: less than 100 mg/dLNear Optimal/Above Optimal LDL: 110- 129 mg/dLBorderline High LDL: 130-159 mg/dLHigh LDL: 160-189 mg/dLVery High LDL: greater than or equal to 190 mg/dL HDL Cholesterol 40(L) >40 mg/dL [facility] Comment:Desirable HDL: great er than 40 mg/dL Note: This HDL assay may give artificially low results in patients with liver disease. Blood Venous blood specimen / Unknown 06/01/2025 10:45 AM EDT 06/01/2025 2:35 PM EDT us Zahira Grant MD LAB BLOOD ORDERABLES Final Re sult Performing Organization Address [facility]/ZIP Co de Phone Number [facility] [address] [place] [phone] * (ABNORMAL) Comprehensive Metabolic Panel (06/01/2025 10:45 AM EDT) Sodium 139 135 - 145 mmol/L [facility] Potassium 3.8 3.3 - 5.1 mmol/L [facility] Chloride 107 96 - 108 mmol/L [facility] Carbon Dioxide 28 22 - 29 mmol/L [facility] Anion Gap 8(L) 12 - 20 [facility] Urea Nitrogen (BUN) 9 9 - 16 mg/dL [facility] Creatinine, Serum 0.57 0.5 - 1.4 mg/dL [facility] Estimated Glomerular Filt Rate >60 [facility] Comment:Chronic Kidney Disea se: Estimated GFR < 60 mL/min/1.68f0Ngrtjm Kidney Disease: Estimated GFR < 15 mL/min/1.73m2 Glucose 75 60 - 115 mg/dL [facility] Calcium 8.5 8.4 - 10.2 mg/dL [facility] Bilirubin, Total 0.3 0.0 - 1.0 mg/dL [facility] Aspartate Amino Transferase 27 5 - 31 U/L [facility] Alanine Aminotransferase 16 0 - 31 U/L [facility] Total Protein 7.3 6.5 - 8.0 g/dL [facility] Albumin Level 4.0 3.5 - 5.0 g/dL [facility] Alkaline Phosphatase 44 39 - 117 U/L [facility] Blood Venous blood specimen / Unknown 06/01/2025 10:45 AM EDT 06/01/2025 2:35 PM EDT us Zahira Grant MD LAB BLOOD ORDERABLES Final Re sult [facility] [address] [place], [place] [phone] * ThinPrep Imaging Pap and HPV mRNA E6/E7 (06/07/2024 11:04 AM EDT) HPV nRNA E6/E7 Not Detected Not Detected [facility] Comment:Methodology: Transcr iption-Mediated AmplificationThis assay detects E6/E7 viral messenger RNA (mRNA) from 14high-risk HPV types (16,18,31,33,35,39,45,51,52,56,58,59,66,68).Cervical sources are required for HPV testing.If a vaginal source from a patient who has had atotal hysterectomy with removal of cervix wassubmitted, please contact the testing laboratoryfor alternative testing options.For additional information, please refer [email or web address]/faq/VTJ976i1(This link if provided for information/educational purposes only.)THIS TEST WAS PERFORMED AT:[employer] [address] [phone] SHORT MD SOURCE: SEE NOTE [facility] Comment:Cervix Report Status: [facility] Clinical Information: SEE NOTE [facility] Comment:None given LMP: SEE NOTE [facility] Comment:NONE GIVEN Prev. PAP: SEE NOTE [facility] Comment:NONE GIVEN Prev. BX: SEE NOTE [facility] Comment:NONE GIVEN Statement Of Adequacy: SEE NOTE [facility] Comment:Satisfactory for jony luation.Endocervical/transformation zone component absent. General Categorization: [facility] Interpretation/Result: SEE NOTE [facility] Comment:Cytology Results: Ne gative for intraepitheliallesion or malignancy. Cytology Comment SEE NOTE [facility] Comment:This Pap test has be en evaluated with computerassisted technology. Computer Information Systems Instructor: SEE NOTE [facility] Comment:MSM, CT(ASCP)CT scre ening location: [address] [address] Review Computer Information Systems Instructor: [facility] Pathologist [facility] PAP Infection SEE NOTE [facility] Comment:Shift in vaginal rui ra suggestive of bacterialvaginosis. See Note SEE [facility] Comment:EXPLANATORY NOTE:The Pap is [...] AM EDT 06/07/2024 5:19 PM EDT Narrative [facility] - 06/09/2024 2:45 PM EDT SEE SCANNED RESULTS IN EMRCERVIX Joyce Rodrigues CNM LAB PATHOLOGY ORDERABLES Final Result [facility] [address] [place] [phone] * Mammography (06/17/2018) Mammogram Perform Anatomical Region Laterality Modality Other Historical Provider HEALTH MAINTENANCE Final Result from Last 3 Months or Most Recently Relevant to Health Maintenance Insurance [facility] C3 Care Teams Masking Machine Feeder Relationship Specialty Start Date End Date Zahira Grant MD [address] [place] [address] PCP - General Family Medicine 06/01/25 Lauren Srivastava NP Nurse Practitioner Psychiatry 09/08/20
--- OUTSIDE RECORDS SUMMARY | 2025-07-11 11:47 | XMS_ITS | Clinical Summary ---
Author Organization [facility] Address [address] [facility] [address] [place] [phone] Phone Care Team Providers Care Physician Ophthalmologist Name Role Phone Katt Sandoval MD Primary Care Provider [phone] Allergies No known active allergies Medications ARIPiprazole [...] 06/17/2018 INFLUENZA VACCINE (#1) 2025 COVID-19 VACCINE (2024-2 6 season) 2025 SMOKING STATUS SCREENING (On ce [...] topic Medical Devices Not on file Insurance [facility] C3 ACO C3 ACO C3 ACO Care Teams Physician Ophthalmologist Relationship Specialty Start Date End Date Katt Sandoval MD [address] [place] [address] PCP - General Internal Medicine 12/16/23 Additional Source Comments The information contained in this document represents components of the legal health record. It is not the complete legal health record.[facility]
--- OUTSIDE RECORDS SUMMARY | 2025-07-11 11:47 | XMS_ITS | Encounter Summary ---
Author Organization [email or web address] Address [address] [place] [address] 7 [place] [address] Care Team Providers Care Research And Development Technician Name Role Phone Minna Whipple MD Primary Care Provider [phone] Zahira Grant MD Primary Care Provider [phone] Reason for Visit * Reason Onset Date Comments provider switch 03/17/2025 Encounter Details Date Type Department Care Team ([facility] st Contact Info) Description 03/17/2025 Telephone [facility] MED [facility] PEDS [address] [place], [place] [phone] Minna Whipple MD [address] [place] [address] provider switch Social History Tobacco Use Types [...] yesterday and was advised to go to [facility] as no appts were available yesterday. Pt stated she would prefer to a provider in [facility]. Pt stated unable to come in [...] documented as of this encounter Care Teams Research And Development Technician Relationship Specialty Start Date End Date Minna Whipple MD [address] [place] [address] PCP - General Internal Medicine 06/09/18 05/31/25 Zahira Grant MD [address] [place] [address] PCP - General Family Medicine 06/01/25 Lauren Srivastava NP Nurse Practitioner Psychiatry 09/08/20 documented as of this encounter
--- OUTSIDE RECORDS SUMMARY | 2025-07-11 11:47 | XMS_ITS | Encounter Summary ---
Author Organization [employer] Address [address] [facility] 7t [place] [address] Care Team Providers Care Property Manager Name Role Phone Zahira Grant MD Primary Care Provider [phone] Encounter Details Date Type Department Care Team (Latest Contact Info) Description 06/03/2025 Results Follow-Up [facility] MED & PEDS [address] [place], [place] [phone] Zahira Grant MD [address] [place] [address] CBC auto differential, Comprehensive Metabolic Panel, TSH W/Reflex to FT4, Additional followed-up results: 7 Social History Tobacco Use Types Packs/Day Years [...] as of this encounter Visit Diagnoses Diagnosis Vitamin D deficiency- Primary documented in this encounter Additional Health Concerns Assessment Noted Time PHQ-9 Depression Total Score: 18 024 8:56 AM EDT documented as of this encounter Care Teams Property Manager Relationship Specialty Start Date End Date Zahira Grant MD [address] [place] [address] PCP - General Family Medicine 06/01/25 Lauren Srivastava NP Nurse Practitioner Psychiatry 09/08/20 documented as of this encounter
--- OUTSIDE RECORDS SUMMARY | 2025-07-11 11:47 | XMS_ITS | Encounter Summary ---
Author Organization [employer] Address [address] [place] [address] 7t [place] [address] Care Team Providers Care Lithographic Plate Maker Apprentice Name Role Phone Zaihra Grant MD Primary Care Provider [phone] Reason for Visit * Reason Onset Date Comments pt1 07/07/2025 Encounter Details Date Type Department Care Team ([facility] Contact Info) Description 07/07/2025 Telephone [facility] MED & PEDS [address] [place], [place] [phone] Zahira Grant MD [address] [place] [address] pt1 Social History Tobacco Use Types Packs/Day Years [...] encounter Miscellaneous Notes * Telephone Encounter - Katherin Banks - 07/08/2025 8:50 AM EDT Tc from pt stating she when to the first appointment and the visit are clear, please update PT1 Visits: 2 x WEEK * Telephone Encounter - Sophia Hampton - 07/07/2025 11:37 AM EDT Patient calling requesting PT1 Home Address verified: Y/N: Yes Provider name or facility name: [address] [place] [address] Escort needed: Y/N: No Do you have a wheelchair: Y/N: No If yes- Manual or electric: Visits: 3x documented in this encounter Plan of Treatment Not on file documented as of this encounter Visit Diagnoses Not on filedocumented in this encounter Additional Health Concerns Assessment Noted Time PHQ-9 Depression Total Score: 18 024 8:56 AM EDT documented as of this encounter Care Teams Lithographic Plate Maker Apprentice Relationship Specialty Start Date End Date Zahira Grant MD [address] [place] [address] PCP - General Family Medicine 06/01/25 Lauren Srivastava NP Nurse Practitioner Psychiatry 09/08/20 documented as of this encounter
--- OUTSIDE RECORDS SUMMARY | 2025-07-11 11:47 | XMS_ITS | Encounter Summary ---
Author Organization [employer] Address [address] [facility] 7t [place] [address] Care Team Providers Care Turn Down Attendant Name Role Phone Minna Whipple MD Primary Care Provider [phone] Zahira Grant MD Primary Care Provider [phone] Reason for Visit * Reason Onset Date Comments PT-1 03/01/2025 Encounter Details Date Type Department Care Team (Late st Contact Info) Description 03/01/2025 Telephone [facility] MEDICINE [address] [place] [address] Minna Whipple MD [address] [place] [address] PT-1 Social History Tobacco Use Types Packs/Day [...] Y/N: Yes Provider name or facility name: [facility] Facility Address: [address] [place] [address] Escort needed: Y/N: No Do you have [...] documented as of this encounter Care Teams Turn Down Attendant Relationship Specialty Start Date End Date Minna Whipple MD [address] [place] [address] PCP - General Internal Medicine 06/09/18 05/31/25 Zahira Grant MD [address] [place] [address] PCP - General Family Medicine 06/01/25 Lauren Srivastava NP Nurse Practitioner Psychiatry 09/08/20 documented as of this encounter
--- OUTSIDE RECORDS SUMMARY | 2025-07-11 11:47 | XMS_ITS | Encounter Summary ---
Author Organization [employer] Address [address] [place] [address] 7 [place] [address] Care Team Providers Care Epilepsy Physician Name Role Phone Minna Whipple MD Primary Care Provider [phone] Zahira Grant MD Primary Care Provider [phone] Reason for Visit * Reason Onset Date Comments Pt1 08/05/2023 Encounter Details Date Type Department Care Team ([facility] Contact Info) Description 08/05/2023 Telephone [facility] CHC MED & PEDS [address] [place], [place] [phone] Minna Whipple MD [address] [place] [address] Pt1 Social History Tobacco Use Types Packs/Day [...] the mail. * Telephone Encounter - Eleanor Oleary - 08/05/2023 2:15 PM EST PT1 Name of facility: [facility] Specialty: Future appt's Location: [address] [place] [address] Date: n/a Time: n/a fax: [phone] wheelchair: No Polo Coach: Yes (mother: Lidia Dey) All future Appt's documented in this encounter Plan of Treatment Not on file documented as of this encounter Visit Diagnoses Not on filedocumented in this encounter Care Teams Epilepsy Physician Relationship Specialty Start Date End Date Minna Whipple MD [address] [place] [address] PCP - General Internal Medicine 06/09/18 05/31/25 Zahira Grant MD [address] [place] [address] PCP - General Family Medicine 06/01/25 Lauren Srivastava NP Nurse Practitioner Psychiatry 09/08/20 documented as of this encounter
--- OUTSIDE RECORDS SUMMARY | 2025-07-11 11:47 | XMS_ITS | Encounter Summary ---
Author Organization [employer] Address [address] [place] [address] 7 [place] [address] Care Team Providers Care Civilian Technician Name Role Phone Minna Whipple MD Primary Care Provider Zahira Grant MD Primary Care Provider [phone] Encounter Details Date Type Department Care Team (Late st Contact Info) Description 10/23/2023 Telephone [facility] MEDICINE [address] [place], [place] [phone] Minna Whipple MD [address] [place], [place] [phone] Social History Tobacco Use Types Packs/Day Years [...] on filedocumented in this encounter Care Teams Civilian Technician Relationship Specialty Start Date End Date Minna Whipple MD [address] [place], [place] [phone] PCP - General Internal Medicine 06/09/18 05/31/25 Zahira Grant MD [address] [place], [place] [phone] PCP - General Family Medicine 06/01/25 Lauren Atif, NEON SIGN SERVICER Nurse Practitioner Psychiatry 09/08/20 documented as of this encounter
--- OUTSIDE RECORDS SUMMARY | 2025-07-11 11:47 | XMS_ITS | Encounter Summary ---
Author Organization [employer] Address [address] [place] [address] 7t [place] [address] Care Team Providers Care Balance Wheel Screw Hole Driller Name Role Phone Minna Whipple MD Primary Care Provider [phone] Zahira Grant MD Primary Care Provider [phone] Reason for Visit * Reason Comments Med Refill Encounter Details Date Type Department Care Team ([facility] st Contact Info) Description 04/10/2025 Refill [facility] CHC MED & PEDS [address] [place], [place] [phone] Elizabeth Carney FNP [address] [place] [address] Social History Tobacco Use Types Packs/Day Years [...] documented as of this encounter Care Teams Balance Wheel Screw Hole Driller Relationship Specialty Start Date End Date Minna Whipple MD [address] [place] [address] PCP - General Internal Medicine 06/09/18 05/31/25 Zahira Grant MD [address] [place] [address] PCP - General Family Medicine 06/01/25 Lauren Srivastava NP Nurse Practitioner Psychiatry 09/08/20 documented as of this encounter
--- OUTSIDE RECORDS SUMMARY | 2025-07-11 11:47 | XMS_ITS | Encounter Summary ---
Author Organization [employer] Address [address] [place] [address] Care Team Providers Care Municipal Court Judge Name Role Phone Zahira Grant MD Primary Care Provider [phone] Encounter Details Date Type Department Care Team (Late st Contact Info) Description 07/01/2025 Telephone [facility] MEDICINE [address] [place] [address] Zahira Grant MD [address] [place] [address] Social History Tobacco Use Types Packs/Day Years [...] housing situation today? I have cheng bettye 05/25/[address] you li [...] encounter Miscellaneous Notes * Telephone Encounter - Briana Bal - 07/01/2025 10:18 AM EDT TC from pt requesting PT1 for location: [address] [address] Date : 07/05 Time : 9:00 No wheelchair No co founder and chief strategy officer PCP DR. Grant documented in this encounter Plan of Treatment Not on file documented as of this encounter Visit Diagnoses Not on filedocumented in this encounter Additional Health Concerns Assessment Noted Time PHQ-9 Depression Total Score: 18 024 8:56 AM EDT documented as of this encounter Care Teams Municipal Court Judge Relationship Specialty Start Date End Date Zahira Grant MD [address] [place] [address] PCP - General Family Medicine 06/01/25 Lauren Srivastava NP Nurse Practitioner Psychiatry 09/08/20 documented as of this encounter
--- OUTSIDE RECORDS SUMMARY | 2025-07-11 11:47 | XMS_ITS | Encounter Summary ---
Author Organization [employer] Address [address] [place] [address] 7 [place] [address] Care Team Providers Care Filtering Machine Tender Helper Name Role Phone Minna Whipple MD Primary Care Provider Zahira Grant MD Primary Care Provider [phone] Encounter Details Date Type Department Care Team ([facility] Contact Info) Description 09/03/2022 Orders Only [facility] CHC MED & PEDS [address] [place], [place] [phone] Zahira Grant MD [address] [place], [place] [phone] Polyarthralgia (Primary Dx) Social History Tobacco Use [...] sites documented in this encounter Care Teams Filtering Machine Tender Helper Relationship Specialty Start Date End Date Minna Whipple MD [address] [place], [place] [phone] PCP - General Internal Medicine 06/09/18 05/31/25 Zahira Grant MD [address] [place] [address] PCP - General Family Medicine 06/01/25 Lauren Srivastava NP Nurse Practitioner Psychiatry 09/08/20 documented as of this encounter
--- OUTSIDE RECORDS SUMMARY | 2025-07-11 11:47 | XMS_ITS | Encounter Summary ---
Author Organization [employer] Address [address] [facility] 7 [place] [address] Care Team Providers Care World Designer Name Role Phone Minna Whipple MD Primary Care Provider [phone] Zahira Grant MD Primary Care Provider [phone] Reason for Visit * Reason Onset Date Comments PT-1 12/30/2023 Encounter Details Date Type Department Care Team (Late st Contact Info) Description 12/30/2023 Telephone [facility] MED[facility]INE [address] [place] [address] Minna Whipple MD [address] [place] [address] PT-1 Social History Tobacco Use Types Packs/Day [...] Provider name or facility name: Plastic surgery [facility] Facility Address: [address] [place] [address] Escort needed: Y/N: No Do you have [...] documented as of this encounter Care Teams World Designer Relationship Specialty Start Date End Date Minna Whipple MD [address] [place] [address] PCP - General Internal Medicine 06/09/18 05/31/25 Zahira Grant MD [address] [place] [address] PCP - General Family Medicine 06/01/25 Lauren Srivastava NP Nurse Practitioner Psychiatry 09/08/20 documented as of this encounter
--- OUTSIDE RECORDS SUMMARY | 2025-07-11 11:47 | XMS_ITS | Encounter Summary ---
Author Organization [employer] Address [address] [facility] 7t [place] [address] Care Team Providers Care Clinical Dietician Name Role Phone Zahira Grant MD Primary Care Provider [phone] Reason for Visit * Reason Comments Care Coordination CH[facility] outreach for SDO H PT-1 and food needs-referral completed Encounter Details Date Type Department Care Team (Latest Contact Info) Description 07/07/2025 Patient Outreach [facility] MEDICINE [address] [place] [address] Zahira Grant MD [address] [place] [address] Care Coordination ([facility] outreach for SDOH PT-1 and food needs-referral completed /) Social History Tobacco Use Types Packs/Day Years [...] AM EDT documented as of this encounter Progress Notes * Khurram Gamez - 07/07/2025 11:45 AM EDT CHW Khurram Gamez, placed outbound call to patient for assistance with SDOH as a referral was received by the provider. Patient's name and were confirmed. Patient screened positive for the following SDOH food insecurities. Patient states family in on SNAP program at this time. CHW referral patient to the local list of pantries in the area for help. PT-1 requested was send out in behalf of patient for [facility] appt. Patient verbalizes understanding, and able to agree with plan to follow up.Patient educated on extended clinic hours on Mondays through Wednesdays, and Walk-In Urgent Care Located in [facility]. Patient provided with after-hours line for [facility], , which offer night time triage service and option to transfer to irrigation equipment mechanic provider if needed. documented in this encounter Plan of Treatment Not on file documented as of this encounter Visit Diagnoses Not on filedocumented in this encounter Additional Health Concerns Assessment Noted Time PHQ-9 Depression Total Score: 18 024 8:56 AM EDT documented as of this encounter Care Teams Clinical Dietician Relationship Specialty Start Date End Date Zahira Grant MD [address] [place] [id number] PCP - General Family Medicine 06/01/25 Lauren Srivastava NP Nurse Practitioner Psychiatry 09/08/20 documented as of this encounter
--- OUTSIDE RECORDS SUMMARY | 2025-07-11 11:47 | XMS_ITS | Encounter Summary ---
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 Name Role Phone Zahira Grant MD Primary Care Provider [phone] Reason for Visit * Reason Comments Med Change Request Encounter Details Date Type Department [facility] Description 07/09/2025 Refill [facility] [address] [place], [place] [id number] Minna Whipple MD [address] [place] [address] Social History Tobacco Use Types Packs/Day Years [...] documented as of this encounter Care Teams Hogshead Packer Relationship Specialty Start Date End Date Zahira Grant MD [address] [place] [id number] PCP - General Family Medicine 06/01/25 Lauren Srivastava NP Nurse Practitioner Psychiatry 09/08/20 documented as of this encounter
== END 2025-07-11 09:58 | disposition home or self-care (01) ==
LOC: HO.XRAY 09:57
PROVIDERS: PCP Family Medicine; Visit Provider Family Medicine
DX: M25.562 Pain in left knee (principal); G89.29 Other chronic pain; M62.830 Muscle spasm of back
CPT/HCPCS: 72040; 72070; 72100; 73562

== ENCOUNTER → 2025-07-11 10:01 | Outpatient (BNV) | payer MEDICAID, SELFPAY | PROVIDERS: PCP Family Medicine; Visit Provider Radiology Diagnostic Radiology | DX: M47.817 Spondylosis without myelopathy or radiculopathy, lumbosacral region (principal); M41.87 Other forms of scoliosis, lumbosacral region; M47.812 Spondylosis without myelopathy or radiculopathy, cervical region; M41.82 Other forms of scoliosis, cervical region; M47.814 Spondylosis without myelopathy or radiculopathy, thoracic region; M41.84 Other forms of scoliosis, thoracic region; M17.12 Unilateral primary osteoarthritis, left knee | CPT/HCPCS: 72040; 72070; 72100; 73562 ==

== ENCOUNTER 2025-07-29 09:00 | Outpatient (RCR) | payer MEDICAID, SELFPAY | END 2025-08-05 12:01 | disposition home or self-care (01) | LOC: HO.PT 09:00 | PROVIDERS: PCP Family Medicine; Visit Provider Family Medicine | DX: M62.830 Muscle spasm of back (principal) | CPT/HCPCS: 97110; 97112; 97161 ==